=== PATIENT | female | born 1935 | race Caucasian/White ===

== ENCOUNTER 2024-02-16 10:19 | Outpatient (CLI) | payer MEDICARE, SELFPAY ==
--- NOTE | 2024-02-16 10:36 | ECG_ITS ---
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
[2024-02-16 10:59] LABS: Hematocrit 40.7 % (37.0-47.0); Hemoglobin 13.4 g/dL (12.0-15.0); Mean Corpuscular HGB Conc 32.9 g/dl (32-36); Mean Corpuscular Hemoglobin 33.2 pg (26-34); Mean Corpuscular Volume 100.7 fl (80-100); Mean Platelet Volume 9.1 fl (7.4-10.4); Platelet Count Result 209 k/mm3 (150-375); Red Blood Count 4.04 M/mm3 (4.2-5.4); Red Cell Distribution Width 12.6 % (11.5-14.5); White Blood Count 6.6 K/mm3 (4.5-10.0)
[2024-02-16 11:05] LABS: Add Urine Microscopic? YES; Appearance Urine Cloudy (Clear); Bacteria Urine 3+ /hpf; Bilirubin Urine Negative (Negative); Blood Urine Negative (Negative); Color Urine Yellow (Yellow); Glucose Urine UA Negative (Negative); Ketones Urine Negative (Negative); Leukocyte Esterase Ur Trace LEU/UL (Negative); Nitrate Urine Positive (Negative); Protein Urine Negative (Negative); RBC Urine 0-2 /hpf (0-2); Specific Grav Ur 1.022 (1.001-1.035); Squamous Epithelial Cell Urine Few /hpf (Few); Urobilinogen Urine 0.2 mg/dL (<2.0)
[2024-02-16 11:10] LABS: Anion Gap 5 mmol/L (4-12); Blood Urea Nitrogen 27 mg/dL (7-17); Calcium 9.1 mg/dL (8.4-10.2); Carbon Dioxide 26 mmol/L (22-30); Chloride 107 mmol/L (98-107); Estimated Glomerular Filt Rate 39; Glucose 99 mg/dL (65-110); Potassium 4.5 mmol/L (3.4-5.0); Sodium 138 mmol/L (137-145)
[2024-02-16 11:32] LABS: Partial Thromboplastin Time 28.2 Seconds (22.3-36.8); Prothrombin Time 13.8 Seconds (11.1-14.7)
== END 2024-02-16 10:20 | disposition home or self-care (01) ==
PROVIDERS: PCP Physician Assistant; Visit Provider Neurological Surgery
DX: M43.16 Spondylolisthesis, lumbar region (principal); M48.062 Spinal stenosis, lumbar region with neurogenic claudication; Z01.818 Encounter for other preprocedural examination; R94.31 Abnormal electrocardiogram [ECG] [EKG]
CPT/HCPCS: 36415; 80048; 81001; 85027; 85610; 85730; 87077; 87086; 87186; 93005

== ENCOUNTER 2024-05-02 08:54 | Outpatient (CLI) | payer MEDICARE, SELFPAY ==
--- OUTSIDE RECORDS SUMMARY | 2024-05-02 09:19 | XMS_ITS | Referral Summary ---
Author Organization 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 Name Role Phone Carmela Edwards SENIOR ADMINISTRATIVE ASSISTANT Unavailable Unavailable Ulices Castañeda MD, Terrance Nikunj Primary [facility] Provi devon Allergies Active Allergy Reactions Criticality Noted Date Comments Oxycodone-Acetaminop hen Other (See comments) Low 10/29/2017 felt like there was a balloon in my chest Sulfa (Sulfonamide Antibiotics) Nausea only Reaction: Nausea, Sulfamethoxazole-Tri methoprim Diarrhea,Nausea Only,Vomiting Low Medications ezetimibe (ZETIA) 10 mg tablet take 1 tablet by oral route every day 0 0 05/11/19 14 Active Additional Information Patient taking differently:10 mgoral Daily, Reported on 01/14/2024 olmesartan (BENICAR) 20 mg tablet TAKE ONE TABLET BY MOUTH DAILY 07/11/19 18 Active cholecalciferol (VITAMIN D-3) 1,000 unit tablet Take 1,000 Units by mouth daily. Active cyanocobalamin (Vitamin B-12) 1,000 mcg tablet Take 1,000 mcg by mouth daily. Active ascorbic acid (VITAMIN C) 500 mg tablet,chewableInd ications:Vitamin deficiency prevention Take 1 tablet/chew tab (500 mg total) by mouth 2 (two) times a day. 60 tablet/chew tab 09/16/19 18 Active aspirin 325 mg EC tabletIndications: Deep Vein Thrombosis Prevention Take 1 tablet (325 mg total) by mouth 2 (two) times a day. 56 tablet 09/16/19 18 Active ferrous sulfate 325 mg (65 mg of elemental iron) tabletIndications: Iron Deficiency Anemia,Anemia prevention Take 1 tablet (325 mg total) by mouth daily with breakfast. 30 tablet 09/16/19 18 Active ondansetron ODT (ZOFRAN-ODT) 4 mg disintegrating tabletIndications: Prevention of Post-Operative Nausea and Vomiting,nausea and vomiting Take 1 tablet (4 mg total) by mouth every 6 (six) hours as needed for nausea or vomiting. 20 tablet 09/16/19 18 Active polyethylene glycol (MIRALAX) 17 gram packetIndications: constipation Take 1 packet (17 g total) by mouth daily. 1 packet 09/16/19 18 Active senna-docusate (PERICOLACE) 8.6-50 mgIndications:cons tipation Take 1 tablet by mouth 2 (two) times a day as needed for constipation. 30 tablet 09/16/19 18 Active Additional Information Patient not taking.Reported on 06/20/2021 celecoxib (CeleBREX) 200 mg capsuleIndications :Postoperative Acute Pain,Pain Take 1 capsule (200 mg total) by mouth 2 (two) times a day. 28 capsule 09/16/19 18 Active diclofenac sodium (VOLTAREN) 1 % gel Apply topically 4 (four) times a day as needed (pain). Apply 2 grams topically to right knee or ankle prn for pain/arthritic symptoms 100 g 2 10/29/19 18 Active azithromycin (ZITHROMAX) 250 mg tablet 2 tab(s) daily for 1 day, then 1 tab(s) daily for days 2-5. 08/20/19 19 Active candesartan (ATACAND) 16 mg tablet TAKE 1 TABLET BY MOUTH EVERY DAY 08/14/19 19 Active carisoprodol (SOMA) 350 mg tablet Take 350 mg by mouth 3 (three) times a day 0 06/24/19 19 Active irbesartan (AVAPRO) 150 mg tablet Take 1 tablet (150 mg total) by mouth daily 07/28/19 19 Active TiZANidine (ZANAFLEX) 2 mg capsule TAKE 1 CAP BY MOUTH 3 TIMES DAILY FOR 14 DAYS. 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 Resolved Problems Problem Noted Date Diagnosed Date Resolved Date Primary osteoarthritis of right knee 08/21/2017 09/15/2017 Overview (08/21/2017): Added automatically from request for surgery [id number] Social History Tobacco Use Types Packs/Day Years Used Date Smoking Tobacco: Never Smokeless Tobacco: Never Alcohol Use Standard Drinks/Week Comments No 0 (1 standard drink = 0.6 oz pur e alcohol) PHQ-2 Answer Date Recorded PHQ-2 Total Score (If total score is 3 or more points, staff should administer the PHQ-9) 0 01/14/2024 Comments Unknown Sex and Gender Information Value Date Recorded Sex Assigned at Not on file 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 Gender Identity Not on file Sexual Orientation Not on file Last Filed Vital Signs Vital Sign Reading Time Taken Comments Blood Pressure 138/82 01/14/2024 10:06 AM CDT Pulse 79 01/14/2024 10:06 AM CDT Temperature 36.3 C (97.3 F) 09/25/2017 1:48 PM CDT Respiratory Rate 18 01/14/2024 10:06 AM CDT Oxygen Saturation 99% 01/14/2024 10:06 AM CDT Inhaled Oxygen Concentration - - Weight 104 kg (229 lb 3.2 oz) 09/14/2018 8:38 AM CDT Height 175.3 cm (5' 9 ) 09/14/2018 8:38 AM CDT Body Mass Index 33.85 09/14/2018 8:38 AM CDT Plan of Treatment Not on file Medical Devices Implanted Type Area Cat Scan Tech Device Identifier Shelf Expiration Date Model / Serial / Lot Cmpnt Truliant Ps Cement Fem Right 4 - [id number] - [id number] Implanted:Qty: 1 on 09/14/2017 by Brandon Mistry MD at [facility] Right: Knee [employer] 07/15/2027 [id number] 40 / [id number] / Optetrak 3 Peg Advanced Patella Cemented, Thickness 8.2mm 32mm X 37mm Implanted:Qty: 1 on 09/14/2017 by Brandon Mistry MD at [facility] Right: Knee [employer] [id number] 05/07/2022 / [id number] / Insert Tibial 4 9mm Knee Truliant Strl - [id number] - [id number] Implanted:Qty: 1 on 09/14/2017 by Brandon Mistry MD at [facility] Right: Knee [employer] 07/07/202508-802-40-40 09 / [id number] / Tray Tibial Truliant 4f/4t Knee Strl Ltxfre - [id number] - [id number] Implanted:Qty: 1 on 09/14/2017 by Brandon Mistry MD at [facility] Right: Knee [employer] 05/19/202720-147-79-40 40 / [id number] / [employer] [id number] Smartset High Viscosity Cement 40gm Bone Gentamicin - [id number] Implanted:Qty: 1 on 09/14/2017 by Brandon Mistry MD at [facility] Right: Knee [employer] 12/20/2018 [id number] / / [id number] [employer] [id number] Smartset High Viscosity Cement 40gm Bone Gentamicin - [id number] Implanted:Qty: 1 on 09/14/2017 by Brandon Mistry MD at [facility] Right: Knee [employer] 11/20/2018 [id number] / / [id number] Insurance MEDICARE [facility] MEDICARE [facility] MEDICARE [facility] MEDICARE [facility] Advance Directives For more information, please contact: [phone] * Full Code (Latest Code Status on File) Date Activated Date Inactivated Comments 09/14/2017 6:23 PM 09/15/2017 7:23 PM Care Teams Stock Parts Fabricator Relationship Specialty Start Date End Date Terrance Elena Jr., MD [address] [place] [address] PCP - General 09/14/17 Carmela Edwards, SENIOR ADMINISTRATIVE ASSISTANT Steel Pourer Helper Physical Therapy 09/04/17
--- OUTSIDE RECORDS SUMMARY | 2024-05-02 09:20 | XMS_ITS | Clinical Summary ---
Author Organization [facility] Address [address] [facility] [address] [place] [address] Phone Care Team Providers Care Property Assessment Monitor Name Role Phone Carmela Barney Primary Care Provider + Allergies Active Allergy Reactions Criticality Noted Date Comments Oxycodone-Acetaminop hen Other (see Comments) 10/29/2017 felt like there was a balloon in my chest Sulfamethoxazole-Tri methoprim Diarrhea,Nausea,Vomiti ng Medications Multiple Vitamins-Mineral s (MULTIVITAL PO) Take by mouth. Active ezetimibe (ZETIA) 10 MG Tablet TAKE 1 TABLET DAILY 90 Tablet 3 07/10/19 24 Active celecoxib (CeleBREX) 200 MG Capsule TAKE 1 CAPSULE DAILY 90 Capsule 3 07/10/19 24 Active irbesartan (AVAPRO) 150 MG Tablet TAKE 1 TABLET BY MOUTH EVERY DAY 90 Tablet 3 09/18/19 24 Active hydroCHLOROthiaz vannessa 25 MG TabletIndication s:Essential hypertension TAKE 1 TABLET BY MOUTH EVERY DAY 90 Tablet 1 04/05/19 25 Active traMADol (ULTRAM) 50 MG TabletIndication s:Central stenosis of spinal canal Take 1 Tablet by mouth every 6 hours as needed for Moderate or more severe pain. 90 Tablet 04/05/19 25 Active hydroCHLOROthiaz vannessa 25 MG TabletIndication s:Essential hypertension Take 1 Tablet by mouth daily. 90 Tablet 1 10/21/19 24 025 Discontinued HYDROcodone-acet aminophen (NORCO) 5-325 MG TabletIndication s:Central stenosis of spinal canal Take 1 Tablet by mouth every 4 hours as needed for Severe pain. 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 Encounters Date Type Department Care Team Description 04/29/2024 [facility] [address] [place] [address] Carmela Barney PAC Labs Only 04/26/2024 Results Follow-Up [facility] [address] [place] [address] Carmela Barney, REBEL 04/20/2024 Telephone [facility] [address] [place] [address] Carmela Barney, PAC 04/18/2024 3:00 PM SERVICES EXECUTIVE Lab [facility] [address] [address] [facility]/Ancillary Essential hypertension; Elevated MCV; Hyperlipidemia, unspecified hyperlipidemia type Discharge Disposition: Discharged to home or Selfcare 04/18/2024 2:15 PM SERVICES EXECUTIVE Office Visit [facility] [address] [place] [address] Carmela Barney, REBEL Essential hypertension (Primary Dx); Spinal stenosis of lumbar region with neurogenic claudication Discharge Disposition: Discharged to home or Selfcare 04/18/2024 Travel 04/05/2024 [facility] [address] [place] [address] Carmela Barney PAC Medication Management 04/05/2024 Refill [facility] [address] [place] [address] Carmela Barney, PAC Medication Refill 03/17/2024 3:00 PM SERVICES EXECUTIVE Office Visit [facility] [address] [place] [phone] Teresa Marsh APRN, DRAMATIC COACH Pre-op evaluation (Primary Dx); Primary hypertension; Dyslipidemia; RBBB Discharge Disposition: Discharged to home or Selfcare 03/17/2024 Travel 03/04/2024 [facility] [place] [phone] Carmela Barney, PAC Medication Refill 03/04/2024 [facility] [address] [place] [phone] Carmela Barney, PAC Follow-up 02/17/2024 [facility] [address] [place] [phone] Carmela Barney, REBEL Medication Management; Advice Only (Abnormal EKG and urinalysis results Back surgery L3-L4 cancelled for 02/23/24) 02/08/2024 11:30 AM SERVICES EXECUTIVE Office Visit [facility] [address] [place] [phone] Carmela Barney, PAC Essential hypertension (Primary Dx); Hyperlipidemia, unspecified hyperlipidemia type; Elevated MCV Discharge Disposition: Discharged to home or Selfcare 02/08/2024 [facility] [address] [place] [phone] Carmela Barney, PAC Advice Only 02/08/2024 Travel 02/08/2024 [facility]ill [facility] [address] [place] [address] Carmela Barney, PAC Medication Refill from Last 3 Months Immunizations Immunization Administration Dates Next Due Covid-19 Vaccine, Vector-nr, Rs-ad26, Pf, 0.5 Ml (Mastodon C/J&MyNewPlace) 08/03/2020 TDAP Vaccine 06/07/2021 Family History Medical History Relation Name Comments No Known Problems Brother No Known Problems Father No Known Problems Maternal Grandfather No Known Problems Maternal Grandmother No Known Problems Mother Breast Cancer Other cousin No Known Problems Paternal Grandfather No Known Problems Paternal Grandmother No Known Problems Sister Relation Name Status Comments Brother Father Maternal Grandfather Maternal Grandmother Mother Other cousin Paternal Grandfather Paternal Grandmother Sister Social History Tobacco Use Types Packs/Day Years Used Date Smoking Tobacco: Never Smokeless Tobacco: Never Tobacco Cessation:Counseling Given: Not Answered Alcohol Use Standard Drinks/Week Comments Yes 0 (1 standard drink = 0.6 oz pur e alcohol) rare [facility] Utilities Answer Date Recorded In the past 12 months has e electric, gas, oil, or water company threatened to shut off services in your home? No 02/08/2024 Social Connection and Isolat ion Panel [NHANES] Answer Date Recorded In a typical week, how many times do you talk on the phone with family, friends, or neighbors? More than three times a week 02/08/2024 How often do you get togethe r with friends or relatives? More than three times a week 02/08/2024 How often do you attend chur ch or samaritan services? More than 4 times per year 02/08/2024 Do you belong to any clubs o r organizations such as yazidism groups, unions, fraternal or athletic groups, or school groups? No 02/08/2024 How often do you attend meet ings of the clubs or organizations you belong to? Never 02/08/2024 Are you , , di vorced, , never , or living with a partner? 02/08/2024 AUDIT-C Answer Date Recorded Q1: How often do you have a drink containing alcohol? Never 02/08/2024 Q2: How many drinks containi ng alcohol do you have on a typical day when you are drinking? Patient does not drink Q3: How often do you have si x or more drinks on one occasion? Never 02/08/2024 Overall Financial Resource Strain (CARDIA) Answe r Date Recorded How hard is it for you to pa y for the very basics like food, housing, medical care, and heating? Not very hard 02/08/2024 PHQ-2 Answer Date Recorded Total Score - Questions 1-9 0 03/24 [facility] - Occupational Stress Questionnaire Answer Date Recorded Do you feel stress - tense, restless, nervous, or anxious, or unable to sleep at night because your mind is troubled all the time - these days? Not at all 02/08/2024 Exercise Vital Sign Answer Date Recorde d On average, how many days pe r week do you engage in moderate to strenuous exercise (like a brisk walk)? 3 days 02/08/2024 On average, how many minutes do you engage in exercise at this level? 40 min 02/08/2024 Hunger Vital Sign Answer Date Recorded Within the past 12 months, y ou worried that your food would run out before you got the money to buy more. Never true 02/08/20 24 Within the past 12 months, t he food you bought just didn't last and you didn't have money to get more. Never true 02/08/2024 PRAPARE - Transportation Answer Date Re corded In the past 12 months, has l ack of transportation kept you from medical appointments or from getting medications? No 01/21 In the past 12 months, has l ack of transportation kept you from meetings, work, or from getting things needed for daily living? No 02/08/2024 Housing Stability Vital Sign Answer Jagdish e Recorded In the last 12 months, was t here a time when you were not able to pay the mortgage or rent on time? No 04/15/2023 Number of Places Lived in the Last Year Not on f ile 04/15/2023 In the last 12 months, was t here a time when you did not have a steady place to sleep or slept in a nursing home (including now)? No 04/15/2023 Housing Stability Vital Sign Answer Jagdish e Recorded In the last 12 months, was t here a time when you were not able to pay the mortgage or rent on time? No 02/08/2024 In the past 12 months, how m any times have you moved where you were living? 0 02/08/2024 At any time in the past 12 m onths, were you homeless or living in a nursing home (including now)? No 02/08/2024 Education Answer Date Recorded What is the highest level of school you have completed or the highest degree you have received? Some college, no degree 10/13/2022 Sexually Active Control Partners Comments Never Comments No Sex and Gender Information Value Date Recorded Sex Assigned at Not on file Legal Sex Female 10:33 PM CDT Gender Identity Not on file Sexual Orientation Not on file Last Filed Vital Signs Vital Sign Reading Time Taken Comments Blood Pressure 146/72 04/18/2024 2:10 PM SERVICES EXECUTIVE Pulse 91 04/18/2024 2:10 PM SERVICES EXECUTIVE Temperature 36.7 C (98 F) 04/18/2024 2:10 PM SERVICES EXECUTIVE Respiratory Rate 16 03/17/2024 2:52 PM SERVICES EXECUTIVE Oxygen Saturation 98% 04/18/2024 2:10 PM SERVICES EXECUTIVE Inhaled Oxygen Concentration - - Weight 105.7 kg (233 lb) 04/18/2024 2:10 PM SERVICES EXECUTIVE Height 175.3 cm (5' 9 ) 04/18/2024 2:10 PM SERVICES EXECUTIVE Body Mass Index 34.41 04/18/2024 2:10 PM SERVICES EXECUTIVE Plan of Treatment Upcoming Encounters Date Type Department Care Team (Late st Contact Info) Description 08/24/2024 9:00 AM CDT Office Visit [facility] [address] [place] [address] Carmela Barney, PAC [address] [place] [address] Health Maintenance Due Date Last Done Comments Pneumococcal Immunization (5 0+ years) (1 of 1 - PCV) 12/18/1985 Zoster Immunization (1 of 2) 12/18/1985 Respiratory Syncytial Virus (RSV) Immunization (Adult) (1 - 1-dose 75+ series) 12/18/2010 DEXA Bone Density 10/11/2023 10/10/2021 Influenza Immunization (#1) 2023 SARS-COV-2 Immunization (2 - season) 2023 08/03/2020 Td Immunization Every 10 Yea rs (Adults With 1 Tdap) 06/08/2031 06/07/2021 Hepatitis B Immunization Aged Out No longer eligible based on patient's age to complete this topic Hepatitis C Virus (HCV) Screening Discontinued Meningococcal Immunization (ACWY) Aged Out No longer eligible based on patient's age to complete this topic Rotavirus Immunization Aged Out No lo nger eligible based on patient's age to complete this topic Procedures Procedure Name Priority Date/Time Associated Diagnosis Comments CBC WITH AUTO DIFFERENTIAL Routine 04/18/2024 2:55 PM SERVICES EXECUTIVE Essential hypertension Elevated MCV LIPID PANEL Routine 04/18/2024 2:55 PM SERVICES EXECUTIVE Hyperlipidemia, unspecified hyperlipidemia type FOLIC ACID (FOLATE) Routine 04/18/2024 2 :55 PM SERVICES EXECUTIVE Elevated MCV VITAMIN B12 Routine 04/18/2024 2:55 PM SERVICES EXECUTIVE Elevated MCV MAGNESIUM (MG) Routine 04/18/2024 2:55 PM SERVICES EXECUTIVE Essential hypertension COMPLETE BLOOD COUNT (CBC) WITH DIFF Routine 04/18/2024 2:55 PM SERVICES EXECUTIVE Essential hypertension Elevated MCV CMP (COMPREHENSIVE METABOLIC PANEL) Routine 04/18/2024 2:55 PM SERVICES EXECUTIVE Essential hypertension EKG 12 LEAD Routine 03/17/2024 2:59 PM SERVICES EXECUTIVE Pre-op evaluation EKG SCAN 02/16/2024 12:00 AM SERVICES EXECUTIVE NORTH BONE DENSITOMETRY AXIAL SKELETON Routine 10/10/2021 9:48 AM CDT Menopause from Last 3 Months or Most Recently Relevant to Health Maintenance Results * (ABNORMAL) CBC WITH AUTO DIFFERENTIAL (04/18/2024 2:55 PM SERVICES EXECUTIVE) [facility] WBC 8.19 4.00 - 12.00 10(3)/mcL 04/18/2024 3:56 PM SERVICES EXECUTIVE [email or web address] RBC 4.24 3.80 - 5.30 10(6)/mcL 04/18/2024 3:56 PM [facility] HEMOGLOBIN (HGB) 13.9 12.0 - 15.8 g/dL 04/18/2024 3:56 PM [facility] HEMATOCRIT (HCT) 42.4 36.0 - 47.0 % 04/18/2024 3:56 PM [facility] MCV 100.0(H) 82.0 - 96.0 fL 04/18/2024 3:56 PM [facility] MCH 32.8 26.0 - 34.0 pg 04/18/2024 3:56 PM [facility] MCHC 32.8 31.0 - 36.0 g/dL 04/18/2024 3:56 PM [facility] PLATELET COUNT 247 140 - 440 10(3)/mcL 04/18/2024 3:56 PM [facility] RDW 12.9 11.8 - 15.5 % 04/18/2024 3:56 PM [facility] MPV 9.5(L) 9.7 - 12.4 fL 04/18/2024 3:56 PM [facility] NEUTROPHILS 66.0 47.0 - 73.0 % 04/18/2024 3:56 PM [facility] LYMPHOCYTES 22.6 18.0 - 42.0 % 04/18/2024 3:56 PM [facility] MONOCYTES 8.8 4.0 - 12.0 % 04/18/2024 3:56 PM [facility] EOSINOPHILS 2.1 0.0 - 5.0 % 04/18/2024 3:56 PM [facility] BASOPHILS 0.5 0.0 - 1.0 % 04/18/2024 3:56 PM [facility] ABSOLUTE NEUTROPHILS 5.41 1.60 - 7.70 10(3)/mcL 04/18/2024 3:56 PM [facility] ABSOLUTE LYMPHOCYTES 1.85 1.30 - 3.20 10(3)/mcL 04/18/2024 3:56 PM SERVICES EXECUTIVE [facility] ABSOLUTE MONOCYTES 0.72 0.20 - 1.00 10(3)/mcL 04/18/2024 3:56 PM SERVICES EXECUTIVE [facility] ABSOLUTE EOSINOPHIL 0.17 0.00 - 0.40 10(3)/mcL 04/18/2024 3:56 PM SERVICES EXECUTIVE [facility] ABSOLUTE BASOPHILS 0.04 0.00 - 0.10 10(3)/mcL 04/18/2024 3:56 PM SERVICES EXECUTIVE [facility] NRBC PER 100 WBC 0 04/18/19 3:56 PM SERVICES EXECUTIVE [facility] Blood Venipuncture / Unknown 04/18/2024 2:55 PM SERVICES EXECUTIVE 04/18/2024 2:55 PM SERVICES EXECUTIVE Carmela Barney PAC HEMATOLOGY ORDERABLES Fi nal Result [facility] [address] [place] [address] * VITAMIN B12 (04/18/2024 2:55 PM SERVICES EXECUTIVE) VITAMIN B12 664 213 - 816 pg/mL 04/18/2024 5:14 PM SERVICES EXECUTIVE [facility] Blood Venipuncture / Unknown 04/18/2024 2:55 PM SERVICES EXECUTIVE 04/18/2024 2:55 PM SERVICES EXECUTIVE Carmela Barney PAC CHEMISTRY ORDERABLES Fin al Result [facility] [address] [place] [address] * MAGNESIUM (MG) (04/18/2024 2:55 PM SERVICES EXECUTIVE) MAGNESIUM 2.0 1.6 - 2.6 mg/dL 04/18/2024 4:32 PM SERVICES EXECUTIVE [facility] Blood Venipuncture / Unknown 04/18/2024 2:55 PM SERVICES EXECUTIVE 04/18/2024 2:55 PM SERVICES EXECUTIVE us Carmela Milton Savita PAC CHEMISTRY ORDERABLES Fin al Result Performing Organization Address [facility] Co de Phone Number [facility] [address] [place] [address] * (ABNORMAL) LIPID PANEL (04/18/2024 2:55 PM SERVICES EXECUTIVE) CHOLESTEROL 173 <200 mg/dL 04/18/2024 4:32 PM SERVICES EXECUTIVE [facility] TRIGLYCERIDES 201(H) <150 mg/dL 04/18/2024 4:32 PM SERVICES EXECUTIVE [facility] HDL CHOLESTEROL 55 >40 mg/dL 4:32 PM SERVICES EXECUTIVE [facility] LDL 78 <130 mg/dL 04/18/2024 4:32 PM SERVICES EXECUTIVE [facility] VLDL 40 10 - 50 mg/dL 04/18/2024 4:32 PM SERVICES EXECUTIVE [facility] CHOL/HDL RATIO 3.1 0.0 - 4.4 04/18/2024 4:32 PM SERVICES EXECUTIVE [facility] NON-HDL CHOLESTEROL 118 <130 mg/dL 04/18/2024 4:32 PM SERVICES EXECUTIVE [facility] IS THE PATIENT REQUIRED TO BE FASTING? No 04/18/2024 4:32 PM SERVICES EXECUTIVE [facility] Blood Venipuncture / Unknown 04/18/2024 2:55 PM SERVICES EXECUTIVE 04/18/2024 2:55 PM SERVICES EXECUTIVE us WendyKarine Barney PAC CHEMISTRY ORDERABLES Fin al Result Performing Organization Address City/[facility]/ZIP Co de Phone Number [facility] [address] [place] [address] * FOLIC ACID (FOLATE) (04/18/2024 2:55 PM SERVICES EXECUTIVE) FOLATE 12.6 7.0 - 31.4 ng/mL 04/18/2024 5:14 PM SERVICES EXECUTIVE [facility] IS THE PATIENT REQUIRED TO BE FASTING? No 04/18/2024 5:14 PM SERVICES EXECUTIVE [facility] Blood Venipuncture / Unknown 04/18/2024 2:55 PM SERVICES EXECUTIVE 04/18/2024 2:55 PM SERVICES EXECUTIVE us Carmela Barney PAC CHEMISTRY ORDERABLES Fin al Result [facility] [address] [place] [address] * (ABNORMAL) CMP (COMPREHENSIVE METABOLIC PANEL) (04/18/2024 2:55 PM SERVICES EXECUTIVE) SODIUM 139 136 - 145 mmol/L 04/18/2024 4:32 PM [facility] POTASSIUM 4.6 3.5 - 5.1 mmol/L 04/18/2024 4:32 PM [facility] CHLORIDE 108(H) 98 - 107 mmol/L 04/18/2024 4:32 PM [facility] CO2, VENOUS 23 22 - 30 mmol/L 04/18/2024 4:32 PM [facility] ANION GAP 12.6 <18.0 mmol/L 04/18/2024 4:32 PM [facility] GLUCOSE 96 70 - 99 mg/dL 04/18/2024 4:32 PM [facility] BUN 28(H) 10 - 20 mg/dL 04/18/2024 4:32 PM [facility] CREATININE, BLOOD 1.45(H) 0.60 - 1.00 mg/dL 04/18/2024 4:32 PM [facility] BUN/CREATININE RATIO 19 12 - 20 ratio 04/18/2024 4:32 PM [facility] TOTAL PROTEIN 8.1(H) 6.0 - 8.0 g/dL 04/18/2024 4:32 PM [facility] ALBUMIN 4.1 3.5 - 5.0 g/dL 04/18/2024 4:32 PM [facility] A/G RATIO 1.0 1.0 - 2.2 04/18/2024 4:32 PM SERVICES EXECUTIVE [facility] CALCIUM 9.4 8.7 - 10.5 mg/dL 04/18/2024 4:32 PM [facility] T BILI 0.5 0.2 - 1.2 mg/dL 04/18/2024 4:32 PM SERVICES EXECUTIVE [facility] SGOT (AST) 21 6 - 42 U/L 04/18/2024 4:32 PM [facility] SGPT (ALT) 14 6 - 55 U/L 04/18/2024 4:32 PM [facility] ALKALINE PHOSPHATASE 89 40 - 150 U/L 04/18/2024 4:32 PM [facility] IS THE PATIENT REQUIRED TO BE FASTING? No 04/18/2024 4:32 PM SERVICES EXECUTIVE [facility] GFR, ESTIMATED 35(L) >=60 04/18/2024 4:32 PM [facility] Comment: Creatinine Clearance is the preferred criteria for selecting drug dose adjustments in renally impaired patients. The GFR is provided as additional pertinent clinical information. GFR is reported in mL/min/1.73 sq m. Calculation based on the Chronic Kidney Disease Epidemiology Collaboration (CKD- EPI) equation refit without adjustment for race. GFR, EST. 41(L) >=60 025 4:32 PM SERVICES EXECUTIVE [facility] GFR, EST. NONAFRICAN 34(L) >=60 04/18/2024 4:32 PM [facility] Blood Venipuncture / Unknown 04/18/2024 2:55 PM SERVICES EXECUTIVE 04/18/2024 2:55 PM SERVICES EXECUTIVE us Carmela Barney PAC CHEMISTRY ORDERABLES Fin al Result [facility] [place] [address] * EKG 12 LEAD (03/17/2024 2:59 PM SERVICES EXECUTIVE) Ventricular Rate 84 BPM EXTERNAL EKG Atrial Rate 84 BPM EXTERNAL EKG P-R Interval 180 ms EXTERNAL EKG QRS Duration 128 ms EXTERNAL EKG Q-T Duration 398 ms EXTERNAL EKG QTC CALCULATION 470 ms EXTERNAL EKG P [place] 37 degrees EXTERNAL EKG R [place] -38 degrees EXTERNAL EKG T [place] 20 degrees EXTERNAL EKG 03/17/2024 2:59 PM SERVICES EXECUTIVE Impressions EXTERNAL EKG - 04/17/2024 11:25 AM SERVICES EXECUTIVE Normal sinus rhythm Left axis deviation Right bundle branch block Inferior infarct , 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 infarct , age undetermined Abnormal ECG ~ Confirmed by Chucho Foss ([id number]) on 04/17/2024 11:25:36 AM Narrative Procedure Note Chucho Foss MD - 04/17/2024 IMPRESSION: Normal sinus rhythm Left axis deviation Right bundle branch block Inferior infarct , 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 infarct , age undetermined Abnormal ECG ~ Confirmed by Chucho Foss ([id number]) on 04/17/2024 11:25:36 AM Teresa Marsh APRN, DRAMATIC COACH IMG ECG ORDERABLES F inal Result EXTERNAL EKG * EKG SCAN (02/16/2024 12:00 AM SERVICES EXECUTIVE) 02/16/2024 us Provider Scan IMG ECG ORDERABLES Final Result RESULTING AGENCY * NORTH BONE DENSITOMETRY AXIAL SKELETON (10/10/2021 9:48 AM CDT) Anatomical Region Laterality Modality BODY N/A Computed Radiogr aphy 10/10/2021 12:5 9 PM CDT Impressions 10/10/2021 1:01 PM CDT IMPRESSION: Normal. 10 year risk for a major osteoporotic fracture is 8.5 %, 10 year risk for a hip fracture is 1.6 % REFERENCE: Bone mineral density: Normal (T-score above or = -1.0) Low bone mass (T-score between -1.0 and -2.5) replaces the previously used term osteopenia Osteoporosis (T-score = or below -2.5) Medical evaluation for secondary causes of low bone mineral density may be appropriate. FRAX is a World Health Organization validated fracture risk assessment tool that calculates a person's 10 year probability of a major osteoporosis related fracture and hip fracture. According to the National Osteoporosis Foundation guidelines, postmenopausal women and men age 50 or older with low bone mass and a 10 year probability of a major osteoporosis related fracture = or greater than 20% or a 10 year probability of a hip fracture = or greater than 3% should be considered for treatment. For further information, including treatment recommendations, please refer to the 2013 ISCD Official Positions (http://www.iscd.org) and the NOF's Clinician's Guide to Prevention and Treatment of Osteoporosis (http://www.nof.org/professionals/clinical-guidelines) Narrative 10/10/2021 1:01 PM CDT EXAM DESCRIPTION: NORTH BONE DENSITOMETRY AXIAL SKELETON REASON FOR STUDY: 85 y/o year old F with given history of screening. Recruiting Manager/Model: [employer] (S/N [id number]) CLINICAL INFORMATION: Current height: 69 inches Maximum height: 69 inches Weight: 233.3 pounds Risk factors: None COMPARISON: 10/02/2010 FINDINGS: AP LUMBAR SPINE L1-L4: Total BMD is 1.778 g/cm2 T-score is 4.7 LEFT HIP: Total BMD is 0.947 g/cm2 T-score is -0.5 Femoral neck BMD is 0.990 g/cm2 T-score is -0.3 FRAX: 10 year risk for a major osteoporotic fracture is 8.5 %, 10 year risk for a hip fracture is 1.6 % THIS IS AN ELECTRONICALLY VERIFIED FINAL REPORT 10/10/2021 12:59 PM - Electronically signed by Ryne Evans M.D. AG: [employer] Report ID: [id number] Reading Location: [id number] Procedure Note Ryne Evans MD - 10/10/2021 EXAM DESCRIPTION: NORTH BONE DENSITOMETRY AXIAL SKELETON REASON FOR STUDY: 85 y/o year old F with given history of screening. Recruiting Manager/Model: [employer] (S/N [id number]) CLINICAL INFORMATION: Current height: 69 inches Maximum height: 69 inches Weight: 233.3 pounds Risk factors: None COMPARISON: 10/02/2010 FINDINGS: AP LUMBAR SPINE L1-L4: Total BMD is 1.778 g/cm2 T-score is 4.7 LEFT HIP: Total BMD is 0.947 g/cm2 T-score is -0.5 Femoral neck BMD is 0.990 g/cm2 T-score is -0.3 FRAX: 10 year risk for a major osteoporotic fracture is 8.5 %, 10 year risk for a hip fracture is 1.6 % THIS IS AN ELECTRONICALLY VERIFIED FINAL REPORT 10/10/2021 12:59 PM - Electronically signed by Ryne Evans M.D. AG: [employer] Report ID: [id number] Reading Location: [id number] IMPRESSION: Normal. 10 year risk for a major osteoporotic fracture is 8.5 %, 10 year risk for a hip fracture is 1.6 % REFERENCE: Bone mineral density: Normal (T-score above or = -1.0) Low bone mass (T-score between -1.0 and -2.5) replaces the previously used term osteopenia Osteoporosis (T-score = or below -2.5) Medical evaluation for secondary causes of low bone mineral density may be appropriate. FRAX is a World Health Organization validated fracture risk assessment tool that calculates a person's 10 year probability of a major osteoporosis related fracture and hip fracture. According to the National Osteoporosis Foundation guidelines, postmenopausal women and men age 50 or older with low bone mass and a 10 year probability of a major osteoporosis related fracture = or greater than 20% or a 10 year probability of a hip fracture = or greater than 3% should be considered for treatment. For further information, including treatment recommendations, please refer to the 2013 ISCD Official Positions (http://www.iscd.org) and the NOF's Clinician's Guide to Prevention and Treatment of Osteoporosis (http://www.nof.org/professionals/clinical-guidelines) Chantale Dewitt MD IMG DEXA ORDERABLES Final R esult from Last 3 Months or Most Recently Relevant to Health Maintenance Insurance [facility] MEDICARE Care Teams Property Assessment Monitor Relationship Specialty Start Date End Date Carmela Barney PAC [address] [place] [address] PCP - General Physician Technical Marketing Consultant 04/15/23
--- OUTSIDE RECORDS SUMMARY | 2024-05-02 09:20 | XMS_ITS | Encounter Summary ---
Author Organization [facility] Address [address] [facility] [place] [address] Phone Care Team Providers Care Penciller Name Role Phone Chantale Dewitt MD Primary Care Provider [phone] Carmela Barney Primary Care Provider + Reason for Visit * Reason Comments Medication Refill Encounter Details Date Type Department Care Team (Late st Contact Info) Description 03/24/2023 Refill [facility] [address] [place] [address] Chantale Dewitt MD [address] [place] [address] Medication Refill Social History Tobacco Use Types Packs/Day Years Used Date Smoking Tobacco: Never Smokeless Tobacco: Never Alcohol Use Standard Drinks/Week Comments Yes 0 (1 standard drink = 0.6 oz pur e alcohol) rare PHQ-2 Answer Date Recorded Total Score - Questions 1-9 0 03/23 Education Answer Date Recorded What is the highest level of school you have completed or the highest degree you have received? Some college, no degree 10/13/2022 Sexually Active Control Partners Comments Never Comments No Sex and Gender Information Value Date Recorded Sex Assigned at Not on file Legal Sex Female 10:33 PM CDT Gender Identity Not on file Sexual Orientation Not on file documented as of this encounter Miscellaneous Notes * Telephone Encounter - Megan Ahn RN - 03/24/2023 3:03 PM CST PDMP 12/24/22 Medication failed the protocol, provider to review and approve the medication order if appropriate. Requested Prescriptions Pending Prescriptions Disp Refills traMADol (ULTRAM) 50 MG Tablet [Pharmacy Med Name: TRAMADOL HCL 50 MG TABLET] 90 Tablet 0 Sig: TAKE 1 TABLET BY MOUTH EVERY 8 HOURS NEEDED FOR PAIN Not Delegated - Opioid Agonists Protocol Failed - 03/24/2023 11:04 AM Failed - This refill cannot be delegated Passed - Visit with relevant provider in past 12 months or upcoming 90 days Recent Visits Date Type Provider Dept 10/13/22 Office Visit Chantale Dewitt MD [facility] 07/08/22 Office Visit Chantale Dewitt MD [facility] Showing recent visits within past 365 days and meeting all other requirements Future Appointments Date Type Provider Dept 04/15/23 Appointment Carmela Barney PAC [facility] Showing future appointments within next 90 days and meeting all other requirements MACY TECHNICIAN documented in this encounter Plan of Treatment Upcoming Encounters Date Type Department Care Team (Late st Contact Info) Description 08/24/2024 9:00 AM CDT [facility] Visit [facility] [address] [place] [address] Carmela Barney, REB[address] [place] [address] documented as of this encounter Visit Diagnoses Diagnosis Chronic left-sided low back pain without sciatica documented in this encounter Additional Health Concerns Assessment Noted Time PHQ-9 Depression Total Score: 0 04/06/19 21 7:00 AM PHARMACY TECHNICIAN documented as of this encounter Care Teams Penciller Relationship Specialty Start Date End Date Chantale Dewitt MD [address] [place] [address] PCP - General Family Medicine 04/03/16 04/14/23 Carmela Barney, [facility] [address] [place] [address] PCP - General Physician Welder/Fitter 04/15/23 documented as of this encounter
--- OUTSIDE RECORDS SUMMARY | 2024-05-02 09:20 | XMS_ITS | Encounter Summary ---
Author Organization [facility] Address [address] [place] [address] Phone Care Team Providers Care Isotope Technologist Name Role Phone Chantale Dewitt MD Primary Care Provider [phone] Carmela Barney Primary Care Provider + Reason for Visit * Reason Comments Medication Refill Encounter Details Date Type Department Care Team (Late Contact Info) Description 01/21/2021 [facility] [address] [place], [place] [id number] Chantale Dewitt MD [address] [place] [address] Medication Refill Social History Tobacco Use Types Packs/Day Years Used Date Smoking Tobacco: Never Smokeless Tobacco: Never Alcohol Use Standard Drinks/Week Comments Yes 0 (1 standard drink = 0.6 oz pur e alcohol) rare PHQ-2 Answer Date Recorded Total Score - Questions 1-9 0 03/23 Sexually Active Control Partners Comments Never Comments No Sex and Gender Information Value Date Recorded Sex Assigned at Not on file Legal Sex Female 10:33 PM CDT Gender Identity Not on file Sexual Orientation Not on file documented as of this encounter Plan of Treatment Upcoming Encounters Date Type Department Care Team ([facility] Contact Info) Description 08/24/2024 9:00 AM CDT Office Visit [facility] - Family [facility] [address] [place] [address] Carmela Barney PAC [address] [place] [address] documented as of this encounter Visit Diagnoses Not on filedocumented in this encounter Additional Health Concerns Assessment Noted Time PHQ-9 Depression Total Score: 0 04/06/19 21 7:00 AM CHEMISTRY SPECIALIST documented as of this encounter Care Teams Isotope Technologist Relationship Specialty Start Date End Date Chantale Dewitt MD [address] [place] [address] PCP - General Family Medicine 04/03/16 04/14/23 Carmela Barney PAC [address] [place] [address] PCP - General Physician Athletic Agent 04/15/23 documented as of this encounter
--- OUTSIDE RECORDS SUMMARY | 2024-05-02 09:20 | XMS_ITS | Encounter Summary ---
Author Organization [facility] Address [address] [facility] [place] [address] Phone Care Team Providers Care Manager Lab Name Role Phone Chantale Dewitt MD Primary Care Provider [phone] Carmela Barney Primary Care Provider + Reason for Visit * Reason Comments Medication Refill Encounter Details Date Type Department Care Team (Late st Contact Info) Description 07/07/2022 Refill [facility] - Family Medicine [facility] [address] [place] [address] Chantale Dewitt MD [address] [place] [address] Medication Refill Social History Tobacco Use Types [...] on file Sexual Orientation Not on file COVID-19 Exposure Response Date Recorded In the last 10 days, have yo u been in contact with someone who was confirmed or suspected to have Coronavirus/COVID-19? No / Unsure 07/08/2022 7:57 AM CDT documented as of this encounter Functional Status * Question Answer Date of Assessment Author Little interest or pleasure in doing things Not at all 07/08/2022 8:00 AM CDT Ana Rosa Cano MA Feeling down, depressed, or hopeless Not at all 07/08/2022 8:00 AM CDT Ana Rosa Cano MA * Over the past 2 weeks, how often have you been bothered by any of the following problems? Question Answer Date of Assessment Author Patient Health Questionnaire-2 Score 0 06/21 8:00 AM CDT Ana Rosa Cano MA documented as of this encounter Miscellaneous Notes * Telephone Encounter - Andie James RN - 07/07/2022 11:16 AM CDT Medication failed the protocol, provider to review and approve the medication order if appropriate. Requested Prescriptions Pending Prescriptions Disp Refills traMADol (ULTRAM) 50 MG Tablet [Pharmacy Med Name: TRAMADOL HCL 50 MG TABLET] 90 Tablet 0 Sig: TAKE 1 TABLET BY MOUTH EVERY 8 HOURS NEEDED FOR PAIN Not Delegated - Opioid Agonists Protocol Failed - 07/07/2022 9:27 AM Failed - This refill cannot be delegated Passed - Visit with relevant provider in past 12 months or upcoming 90 days Recent Visits Date Type Provider Dept 10/07/21 Office Visit Chantale Dewitt MD [facility] Showing recent visits within past 365 days and meeting all other requirements Future Appointments Date Type Provider Dept 07/08/22 Appointment Chantale Dewitt MD [facility] Showing future appointments within next 90 days and meeting all other requirements documented in this encounter Plan of Treatment Upcoming Encounters Date Type Department Care Team (Late st Contact Info) Description 08/24/2024 9:00 AM CDT [facility] - [facility] [address] [place] [address] Carmela Barney, REBEL [address] [place] [address] documented as of this encounter Visit Diagnoses Diagnosis Chronic left-sided low back pain without sciatica documented in this encounter Additional Health Concerns Assessment Noted Time PHQ-9 Depression Total Score: 0 04/06/19 21 7:00 AM SEMICONDUCTOR ENGINEER documented as of this encounter Care Teams Manager Lab Relationship Specialty Start Date End Date Chantale Dewitt MD [address] [place] [address] PCP - General Family Medicine 04/03/16 04/14/23 Carmela Barney PAC [address] [place] [address] PCP - General Physician Web Site Admin 04/15/23 documented as of this encounter
--- OUTSIDE RECORDS SUMMARY | 2024-05-02 09:20 | XMS_ITS | Encounter Summary ---
Author Organization [facility] Address [address] [facility] [place] [address] Phone Care Team Providers Care Railroad Engineer Name Role Phone Chantale Dewitt MD Primary Care Provider [phone] Carmela Barney Primary Care Provider + Reason for Visit * Reason Comments Medication Refill Encounter Details Date Type Department Care Team (Late st Contact Info) Description 09/19/2022 Refill [facility] - Family Medicine [facility] [address] [place] [address] Chantale Dewitt MD [address] [place] [address] Medication Refill Social History Tobacco Use Types [...] encounter Miscellaneous Notes * Telephone Encounter - Thelma Petty RN - 09/19/2022 11:40 AM CDT PDMP 07/07/22 30 day supply Medication failed the protocol, provider to review and approve the medication order if appropriate. Requested Prescriptions Pending Prescriptions Disp Refills traMADol (ULTRAM) 50 MG Tablet [Pharmacy Med Name: TRAMADOL HCL 50 MG TABLET] 90 Tablet 0 Sig: TAKE 1 TABLET BY MOUTH EVERY 8 HOURS NEEDED FOR PAIN Not Delegated - Opioid Agonists Protocol Failed - 09/19/2022 10:45 AM Failed - This refill cannot be delegated Passed - Visit with relevant provider in past 12 months or upcoming 90 days Recent Visits Date Type Provider Dept 07/08/22 Office Visit Chantale Dewitt MD [facility] 10/07/21 Office Visit Chantale Dewitt MD [facility] Showing recent visits within past 365 days and meeting all other requirements Future Appointments Date Type Provider Dept 10/13/22 Appointment Chantale Dewitt MD [facility] Showing future appointments within next 90 days and meeting all other requirements documented in this encounter Plan of Treatment Upcoming Encounters Date Type Department Care Team (Late st Contact Info) Description 08/24/2024 9:00 AM CDT Office Visit [facility] - [place] [address] [place] [address] Carmela Barney PAC [address] [place] [address] documented as of this encounter Visit Diagnoses Diagnosis Chronic left-sided low back pain without sciatica documented in this encounter Additional Health Concerns Assessment Noted Time PHQ-9 Depression Total Score: 0 04/06/19 21 7:00 AM LIGHT ARMORED RECONNAISSANCE OFFICER documented as of this encounter Care Teams Railroad Engineer Relationship Specialty Start Date End Date Chantale Dewitt MD [address] [place] [address] PCP - General Family Medicine 04/03/16 04/14/23 Carmela Barney PAC [address] [facility] [place] [address] PCP - General Physician Box Blank Machine Feeder 04/15/23 documented as of this encounter
--- OUTSIDE RECORDS SUMMARY | 2024-05-02 09:20 | XMS_ITS | Clinical Summary ---
Author Organization [facility] Address [address] [place] [address] Care Team Providers Care Manager Chinese Name Role Phone Carmela Edwards EXTRACTOR OPERATOR SOLVENT PROCESS Unavailable Unavailable Ulices Castañeda MD, Terrance Nikunj [...] (08/21/2017): Added automatically from request for surgery [id number] Surgical History Surgery Date Site/Laterality Comments KNEE ARTHROPLASTY Knee replacement JOINT REPLACEMENT 2006 Medical History Medical History Date Comments Hx Other Medical back pain Gout Gout Hypertension Hypertension Hyperlipidemia Family History Medical History Relation Name Comments Heart disease Other 1 Family history of Heart disease; Hypertension Other 2 Family history of Hypertension; Relation Name Status Comments Other 1 Other 2 Social History Tobacco Use Types Packs/Day Years [...] on file Legal Sex Female 4:51 PM VOLUNTEER ASSISTANT Gender Identity Not on file Sexual Orientation Not on file Obstetrics History Last Filed Vital Signs Vital Sign Reading [...] 09/14/2018 8:38 AM CDT Plan of Treatment Health Maintenance Due Date Last Done Comments Fall Risk Assessment 1935 Hepatitis B Screening 12/18/1953 Zoster Vaccine (1 of 2) 12/18/1985 Pneumococcal vaccine 65+ (1 of 1 - PCV) 12/18/2000 Well Visit 65+ 12/18/2000 Covid-19 Vaccine (2 - season) 2023 Influenza Vaccine (#1) 2023 Depression Screening 01/13/2025 01/14/2024, 01/14/20 DTaP/Tdap/Td Vaccine (2 - Td or Tdap) 06/08/2031 Medical Devices Implanted Type Area Lacquer Machine Feeder Device Identifier Shelf Expiration Date Model / Serial / Lot Cmpnt Truliant Ps Cement Fem Right Sz 4 - [id number] - [id number] Implanted:Qty: 1 on 09/14/2017 by Brandon Mistry MD at [facility] Right: Knee Exactech 07/15/202785-760-16-03 40 / [id number] / 200-07-32 Optetrak 3 Peg Advanced Patella Cemented, Thickness 8.2mm 32mm X 37mm Implanted:Qty: 1 on 09/14/2017 by Brandon Mistry MD at [facility] Right: Knee [employer] [id number] 05/07/2022 200-07-32 / [id number] / Insert Tibial 4 9mm Knee Truliant Strl - [id number] - [id number] Implanted:Qty: 1 on 09/14/2017 by Brandon Mistry MD at [facility] Right: Knee [employer] 07/07/202500-497-53-40 09 / [id number] / Tray Tibial Truliant 4f/4t Knee Strl Ltxfre - [id number] - [id number] Implanted:Qty: 1 on 09/14/2017 by Brandon Mistry MD at [facility] Right: Knee [employer] 05/19/202793-541-69-40 40 / [id number] / [employer] [id number] Smartset High Viscosity Cement 40gm Bone Gentamicin - [id number] Implanted:Qty: 1 on 09/14/2017 by Brandon Mistry MD at [facility] Right: Knee [employer] 12/20/2018 [id number] / / [id number] [employer] [id number] Smartset High Viscosity Cement 40gm Bone Gentamicin - [id number] Implanted:Qty: 1 on 09/14/2017 by Brandon Mistry MD at [facility] Right: Knee [employer] 11/20/2018 [id number] / / [id number] Insurance MEDICARE [facility] MEDICARE [facility] MEDICARE [facility] MEDICARE [facility] Advance Directives For more information, please contact: [phone] * Full Code (Latest Code Status on File) Date Activated Date Inactivated Comments 09/14/2017 6:23 PM 09/15/2017 7:23 PM Care Teams Manager Chinese Relationship Specialty Start Date End Date Terrance Elena Jr., MD [address] [place] [address] PCP - General 09/14/17 Carmela Edwards, EXTRACTOR OPERATOR SOLVENT PROCESS Tumbling Machine Operator Physical Therapy 09/04/17
--- OUTSIDE RECORDS SUMMARY | 2024-05-02 09:20 | XMS_ITS | Encounter Summary ---
Author Organization [facility] Address [address] [place] [address] Phone Care Team Providers Care Batter Out Name Role Phone Carmela Barney Primary Care Provider + Reason for Visit * Reason Comments Medication Refill Encounter Details Date Type Department Care Team (Late st Contact Info) Description 07/10/2023 Refill [facility] [address] [place] [address] Cierra Pearson APRN, TOOL CRIB CLERK [address] [address] Medication Refill Social History Tobacco Use Types Packs/Day Years Used Date Smoking Tobacco: Never Smokeless Tobacco: Never Alcohol Use Standard Drinks/Week Comments Yes 0 (1 standard drink = 0.6 oz pur e alcohol) rare [facility] Utilities Answer Date Recorded In the past 12 months has th e electric, gas, oil, or water company threatened to shut off services in your home? No 04/15/2023 Social Connection and Isolation Panel [NHANES] A nswer Date Recorded Frequency of Communication with Friends and Fami ly Not on file 04/15/2023 How often do you get togethe r with friends or relatives? Three times a week 04/15/2023 Attends [employer] Not on file 04/15 Active Member of Clubs or Organizations Not on f ile 04/15/2023 Attends Club or Organization Meetings Not on tapan e 04/15/2023 Marital Status Not on file 04/15/2023 AUDIT-C Answer Date Recorded Q1: How often do you have a drink containing alcohol? Never 04/15/2023 Q2: How many drinks containi ng alcohol do you have on a typical day when you are drinking? Patient does not drink Q3: How often do you have si x or more drinks on one occasion? Never 04/15/2023 Overall Financial Resource Strain (CARDIA) Answe r Date Recorded How hard is it for you to pa y for the very basics like food, housing, medical care, and heating? Not hard at all 04/15/2023 PHQ-2 Answer Date Recorded Total Score - Questions 1-9 0 03/23 [facility] - Occupational Stress Questionnaire Answer Date Recorded Do you feel stress - tense, restless, nervous, or anxious, or unable to sleep at night because your mind is troubled all the time - these days? Not at all 04/15/2023 Exercise Vital Sign Answer Date Recorde d On average, how many days pe r week do you engage in moderate to strenuous exercise (like a brisk walk)? 2 days 04/15/2023 On average, how many minutes do you engage in exercise at this level? 20 min 04/15/2023 Hunger Vital Sign Answer Date Recorded Within the past 12 months, y ou worried that your food would run out before you got the money to buy more. Never true 04/15/19 Ran Out of Food in the Last Year Not on file 04/15/2023 PRAPARE - Transportation Answer Date Re corded In the past 12 months, has l ack of transportation kept you from medical appointments or from getting medications? No 03/24 In the past 12 months, has l ack of transportation kept you from meetings, work, or from getting things needed for daily living? No 04/15/2023 Housing Stability Vital Sign Answer [...] place to sleep or slept in a fpc (including now)? No 04/15/2023 Education Answer Date Recorded What is the [...] Telephone Encounter - Megan Ahn RN - 07/10/2023 11:59 AM CDT Medication failed the protocol, provider to review and approve the medication order if appropriate. Requested Prescriptions Pending Prescriptions Disp Refills ezetimibe (ZETIA) 10 MG Tablet [Pharmacy Med Name: EZETIMIBE TABS 10MG] 90 Tablet 3 Sig: TAKE 1 TABLET DAILY Intestinal Cholesterol Absorption Inhibitors Protocol Passed - 07/10/2023 12:00 AM Passed - Visit with relevant provider in past year or upcoming 90 days Recent Visits Date Type Provider Dept 04/15/23 Office Visit Carmela aBrney PAC [facility] 10/13/22 Office Visit Chantale Dewitt MD [facility] Showing recent visits within past 365 days and meeting all other requirements Future Appointments Date Type Provider Dept 08/04/23 Appointment Carmela Barney PAC [facility] Showing future appointments within next 90 days and meeting all other requirements Passed - Lipid panel in past year LDL Date Value Ref Range Status 04/08/2023 99 <130 mg/dL Final HDL CHOLESTEROL Date Value Ref Range Status 04/08/2023 57 >40 mg/dL Final CHOLESTEROL Date Value Ref Range Status 04/08/2023 188 <200 mg/dL Final TRIGLYCERIDES Date Value Ref Range Status 04/08/2023 159 (H) <150 mg/dL Final VLDL Date Value Ref Range Status 04/08/2023 32 10 - 50 mg/dL Final CHOL/HDL RATIO Date Value Ref Range Status 04/08/2023 3.3 0.0 - 4.4 Final NON-HDL CHOLESTEROL Date Value Ref Range Status 04/08/2023 131 (H) <130 mg/dL Final celecoxib (CeleBREX) 200 MG Capsule [Pharmacy Med Name: CELECOXIB CAPS 200MG] 90 Capsule 3 Sig: TAKE 1 CAPSULE DAILY NSAIDs Protocol Failed - 07/10/2023 12:00 AM Failed - Normal serum creatinine in past 12 months CREATININE, BLOOD Date Value Ref Range Status 04/08/2023 1.03 (H) 0.60 - 1.00 mg/dL Final Failed - Not delegated, patient not between 1 and 65 years of age Passed - Visit with relevant provider in past 12 months or upcoming 90 days Recent Visits Date Type Provider Dept 04/15/23 Office Visit Carmela Barney PAC [facility] 10/13/22 [facility] Show[facility] recent visits within past 365 days and meeting all other requirements Future Appointments Date Type Provider Dept 08/04/23 Appointment Carmela Barney PAC [facility] Showing future appointments within next 90 days and meeting all other requirements Passed - No matching NSAID med order in past 45 days No matching medication orders between 05/26/2023 11:59 AM and 07/10/2023 11:59 AM Passed - AST less than 55 or ALT less than 90 in past 12 months SGOT (AST) Date Value Ref Range Status 04/08/2023 17 5 - 34 U/L Final SGPT (ALT) Date Value Ref Range Status 04/08/2023 14 0 - 55 U/L Final Passed - HGB greater than 10 or HCT greater than 30 in past 12 months HEMOGLOBIN (HGB) Date Value Ref Range Status 04/08/2023 14.9 12.0 - 15.8 g/dL Final HEMATOCRIT (HCT) Date Value Ref Range Status 04/08/2023 46.1 36.0 - 47.0 % Final documented in this encounter Plan of Treatment Upcoming Encounters Date Type Department Care Team (Late st Contact Info) Description 08/24/2024 9:00 AM CDT Office Visit [facility] - Family Medicine [facility] [address] [place] [address] Carmela Barney, REBEL [address] [place] [address] documented as of this encounter Visit Diagnoses Not on filedocumented in this encounter Additional Health Concerns Assessment Noted Time PHQ-9 Depression Total Score: 0 04/06/19 21 7:00 AM DIAMOND MOUNTER documented as of this encounter Care Teams Batter Out Relationship Specialty Start Date End Date Carmela Barney PAC [address] [place] [address] PCP - General Physician Hob Machine Operator 04/15/23 documented as of this encounter
--- OUTSIDE RECORDS SUMMARY | 2024-05-02 09:20 | XMS_ITS | Encounter Summary ---
Author Organization [facility] Address [address] [place] [address] Phone Care Team Providers Care School Speech Language Pathologist Name Role Phone Carmela Barney Primary Care Provider + Reason for Visit * Reason Comments Medication Refill Encounter Details Date Type Department Care Team (Late st Contact Info) Description 06/23/2023 [facility]ill [facility] Medicine [facility] [address]2 [place] [address] Lenin Mireles, BACKREST ASSEMBLER, CIRCUITS ENGINEER [address] [address] Medication Refill Social History Tobacco Use Types Packs/Day Years Used Date Smoking Tobacco: Never Smokeless Tobacco: Never Alcohol Use Standard Drinks/Week Comments Yes 0 (1 standard drink = 0.6 oz pur e alcohol) rare [facility] Utilities Answer Date Recorded In the [...] relatives? Three times a week 04/15/2023 Attends Orthodoxy Services Not on file 04/15 Active Member [...] Total Score - Questions 1-9 0 03/23 [facility] [place] of Occupat ional Health - Occupational Stress [...] place to sleep or slept in a [place] health care facility (including now)? No 04/15/2023 Education Answer Date [...] encounter Miscellaneous Notes * Telephone Encounter - Camila Foreman RMA - 06/25/2023 10:59 AM CDT LVM to R/S * Telephone Encounter - Carmela Barney PAC - 06/24/2023 8:42 AM CDT Next office visit needs rescheduled I am not in office on 10/15 * Telephone Encounter - Megan Ahn RN - 06/24/2023 8:37 AM CDT PDMP 03/24/23 Medication failed the protocol, provider to review and approve the medication order if appropriate. Requested Prescriptions Pending Prescriptions Disp Refills traMADol (ULTRAM) 50 MG Tablet [Pharmacy Med Name: TRAMADOL HCL 50 MG TABLET] 90 Tablet 0 Sig: TAKE 1 TABLET BY MOUTH EVERY 8 HOURS NEEDED FOR PAIN Not Delegated - Opioid Agonists Protocol Failed - 06/23/2023 7:57 AM Failed - This refill cannot be delegated Passed - Visit with relevant provider in past 12 months or upcoming 90 days Recent Visits Date Type Provider Dept 04/15/23 Office Visit Carmela Barney PAC [facility] 10/13/22 Office Visit Chantale Dewitt MD [facility] 07/08/22 Office Visit Chantale Dewitt MD [facility] Showing recent visits within past 365 days and meeting all other requirements Future Appointments No visits were found meeting these conditions. Showing future appointments within next 90 days and meeting all other requirements documented in this encounter Plan of Treatment Upcoming Encounters Date Type Department Care Team (Late st Contact Info) Description 08/24/2024 9:00 AM CDT Office Visit [facility] - Family [facility] [address] [place] [address] Carmela Barney PAC [address]2 [place] [address] documented as of this encounter Visit Diagnoses Diagnosis Chronic left-sided low back pain without sciatica documented in this encounter Additional Health Concerns Assessment Noted Time PHQ-9 Depression Total Score: 0 04/06/19 21 7:00 AM TREE CHIPPER documented as of this encounter Care Teams School Speech Language Pathologist Relationship Specialty Start Date End Date Carmela Barney PAC [address] [place] [address] PCP - General Physician Recording Studio Set Up Worker 04/15/23 documented as of this encounter
--- OUTSIDE RECORDS SUMMARY | 2024-05-02 09:20 | XMS_ITS | Encounter Summary ---
Author Organization [facility] Address [address] [facility] [place] [address] Phone Care Team Providers Care Electrical Controls Engineer Name Role Phone Chantale Dewitt MD Primary Care Provider +1- [phone] Carmela Barney Primary Care Provider + Reason for Visit * Reason Comments Medication Refill Encounter Details Date Type Department Care Team (Late st Contact Info) Description 02/08/2022 Refill [facility] [address] [place] [address] Chantale Dewitt MD [address]2 [place] [address] Medication Refill Social History Tobacco Use Types [...] encounter Miscellaneous Notes * Telephone Encounter - Catie Hunt RN - 02/10/2022 9:24 AM CST PDMP 11/12/2021 30 day supply filled. Last OV 10/07/2021 NDER ROLL PRESS OPERATOR documented in this encounter Plan of Treatment Upcoming Encounters Date Type Department Care Team (Late st Contact Info) Description 08/24/2024 9:00 AM CDT Office Visit [facility] - Family [facility] [address] [place] [address] Carmela Barney PAC [address] [place] [address] documented as of this encounter Visit Diagnoses Diagnosis Chronic left-sided low back pain without sciatica documented in this encounter Additional Health Concerns Assessment Noted Time PHQ-9 Depression Total Score: 0 04/06/19 7:00 AM CALENDER ROLL PRESS OPERATOR documented as of this encounter Care Teams Electrical Controls Engineer Relationship Specialty Start Date End Date Chantale Dewitt MD [address] [place] [address] PCP - General Family Medicine 04/03/16 04/14/23 Carmela Barney PAC [address] [place] [address] PCP - General Physician Freight Caller 04/15/23 documented as of this encounter
--- OUTSIDE RECORDS SUMMARY | 2024-05-02 09:20 | XMS_ITS | Encounter Summary ---
Author Organization [facility] Address [address] [facility] [place] [address] Phone Care Team Providers Care Appeals Reviewer Veteran Name Role Phone Chantale Dewitt MD Primary Care Provider +1- [phone] Carmela Barney Primary Care Provider + Reason for Visit * Reason Comments Medication Refill Encounter Details Date Type Department Care Team (Late st Contact Info) Description 04/13/2023 [address]ill [facility] - Family Medicine [facility] [address] [place] [address] Chantale Dewitt MD [address] [place] [address] Medication Refill Social History Tobacco Use Types Packs/Day Years Used Date Smoking Tobacco: Never Smokeless Tobacco: Never Alcohol Use Standard Drinks/Week Comments Yes 0 (1 standard drink = 0.6 oz pur e alcohol) rare [facility] Utilities Answer Date Recorded In the [...] relatives? Three times a week 04/15/2023 Attends Jainism Services Not on file 04/15 Active Member [...] Total Score - Questions 1-9 0 03/23 [facility] of Occupat ional Health - Occupational Stress [...] money to buy more. Never true 04/15/19 24 Ran Out of Food in the Last [...] place to sleep or slept in a fci (including now)? No 04/15/2023 Education Answer Date [...] on file documented as of this encounter Functional Status * Audit-C Score Answer Date of Assessment Author 0 04/15/2023 8:58 AM CODER OPERATOR [facility] * Within the last year, have you been humiliated or emotionally abused in other ways by your partner or ex-partner? Answer Date of Assessment Author No 04/15/2023 8:58 AM CODER OPERATOR [facility] * Within the last year, have you been afraid of your partner or ex-partner? Answer Date of Assessment Author No 04/15/2023 8:58 AM CODER OPERATOR [facility] * Q1: How often do you have a drink containing alcohol? Answer Date of Assessment Author Never 04/15/2023 8:58 AM CODER OPERATOR [facility] * Q2: How many drinks containing alcohol do you have on a typical day when you are drinking? Answer Date of Assessment Author Patient does not drink 04/15/2023 8:58 AM CODER OPERATOR [facility] * Q3: How often do you have six or more drinks on one occasion? Answer Date of Assessment Author Never 04/15/2023 8:58 AM CODER OPERATOR [facility] * Question Answer Date of Assessment Author Little interest or pleasure in doing things Not at all 04/15/2023 9:14 AM Lise Downey MA Feeling down, depressed, or hopeless Not at all 04/15/2023 9:14 AM Lise Downey MA * Over the past 2 weeks, how often have you been bothered by any of the following problems? Question Answer Date of Assessment Author Patient Health Questionnaire -2 Score 0 04/15/2023 9:14 AM Lise Downey MA documented as of this encounter Miscellaneous Notes * Telephone Encounter - Megan Ahn RN - 04/13/2023 12:14 PM CST Upcoming appt with Carmela 04/15/23 Medication failed the protocol, provider to review and approve the medication order if appropriate. Requested Prescriptions Pending Prescriptions Disp Refills celecoxib (CeleBREX) 200 MG Capsule [Pharmacy Med Name: CELECOXIB CAPS 200MG] 90 Capsule 0 Sig: TAKE 1 CAPSULE DAILY NSAIDs Protocol Failed - 04/13/2023 12:15 AM Failed - Normal serum creatinine in [...] Guzman 07/08/22 Office Visit Chantale Dewitt MD [facility] Showing recent visits within past 365 days and meeting all other requirements Future Appointments Date Type Provider Dept 04/15/23 Appointment Carmela Barney, [facility] Showing future appointments within next 90 days and meeting all other requirements Passed - No matching NSAID med order in past 45 days No matching medication orders between 02/27/2023 12:14 PM and 04/13/2023 12:14 PM Passed - AST less than 55 or [...] 04/08/2023 46.1 36.0 - 47.0 % Final ezetimibe (ZETIA) 10 MG Tablet [Pharmacy Med Name: EZETIMIBE TABS 10MG] 90 Tablet 0 Sig: TAKE 1 TABLET DAILY Intestinal Cholesterol Absorption Inhibitors Protocol Passed - 04/13/2023 12:15 AM Passed - Visit with relevant provider in past year or upcoming 90 days Recent Visits Date Type Provider Dept 10/13/22 Office Visit Chantale Dewitt MD [facility] 07/08/22 Office Visit Chantale Dewitt MD [facility] Showing recent visits within past 365 days and meeting all other requirements Future Appointments Date Type Provider Dept 04/15/23 Appointment Carmela Barney PAC [facility] Showing [...] Status 04/08/2023 131 (H) <130 mg/dL Final R OPERATOR documented in this encounter Plan of Treatment Upcoming Encounters Date Type Department Care Team (Late st Contact Info) Description 08/24/2024 9:00 AM CDT Office Visit [facility] - Family Medicine [place] [address] [place] [address] Carmela Barney PAC [address] [place] [address] documented as of this encounter Visit Diagnoses Not on filedocumented in this encounter Additional Health Concerns Assessment Noted Time PHQ-9 Depression Total Score: 0 04/06/19 7:00 AM CODER OPERATOR documented as of this encounter Care Teams Appeals Reviewer Veteran Relationship Specialty Start Date End Date Chantale Dewitt MD [address]2 [place] [address] PCP - General Family Medicine 04/03/16 04/14/23 Carmela Barney, [facility] [address]2 [place] [address] PCP - General Physician Manager Desktop 04/15/23 documented as of this encounter
--- OUTSIDE RECORDS SUMMARY | 2024-05-02 09:20 | XMS_ITS | Encounter Summary ---
Author Organization [facility] Address [address] [facility] [place] [address] Phone Care Team Providers Care Street Car Inspector Name Role Phone Chantale Dewitt MD Primary Care Provider +[phone] Carmlea Barney Primary Care Provider + Reason for Visit * Reason Comments Medication Refill Encounter Details Date Type Department Care Team (Late st Contact Info) Description 12/23/2022 Refill [facility] #2 [place] [address] Bora Roach MD #[address] [address] Medication Refill Social History Tobacco Use Types [...] Telephone Encounter - Megan Ahn RN - 12/23/2022 5:10 PM CDT PDMP 09/22/22 Medication failed the protocol, provider to review and approve the medication order if appropriate. Requested Prescriptions Pending Prescriptions Disp Refills traMADol (ULTRAM) 50 MG Tablet [Pharmacy Med Name: TRAMADOL HCL 50 MG TABLET] 90 Tablet 0 Sig: TAKE 1 TABLET BY MOUTH EVERY 8 HOURS NEEDED FOR PAIN Not Delegated - Opioid Agonists Protocol Failed - 12/23/2022 8:36 AM Failed - This refill cannot be delegated Passed - Visit with relevant provider in past 12 months or upcoming 90 days Recent Visits Date Type Provider Dept 10/13/22 Office Visit Chantale Dewitt MD [facility] 07/08/22 Office Visit Chantale Dewitt MD [facility] [...] Visit [facility] - [place] [address] [place] [address] Carmela Barney PAC [address] [place] [address] documented as of this encounter Visit Diagnoses Diagnosis Chronic left-sided low back pain without sciatica documented in this encounter Additional Health Concerns Assessment Noted Time PHQ-9 Depression Total Score: 0 04/06/19 21 7:00 AM CLINICAL RESEARCH NURSE documented as of this encounter Care Teams Street Car Inspector Relationship Specialty Start Date End Date Chantale Dewitt MD [address] [place] [address] PCP - General Family Medicine 04/03/16 04/14/23 Carmela Barney PAC [address] [place] [address] PCP - General Physician Agronomy Research Manager 04/15/23 documented as of this encounter
[2024-05-02 09:54] LABS: Add Urine Microscopic? NO; Appearance Urine Clear (Clear); Bilirubin Urine Negative (Negative); Blood Urine Negative (Negative); Color Urine Yellow (Yellow); Glucose Urine UA Negative (Negative); Ketones Urine Negative (Negative); Leukocyte Esterase Ur Negative LEU/UL (Negative); Nitrate Urine Negative (Negative); Protein Urine Negative (Negative); Specific Grav Ur 1.015 (1.001-1.035); Urobilinogen Urine 0.2 mg/dL (<2.0); pH Urine 5.5 (5.0-9.0)
[2024-05-02 10:05] LABS: Partial Thromboplastin Time 26.5 Seconds (22.3-36.8); Prothrombin Time 13.7 Seconds (11.1-14.7)
== END 2024-05-02 08:55 | disposition home or self-care (01) ==
LOC: ANHSURGERY 08:58
PROVIDERS: PCP Physician Assistant; Visit Provider Neurological Surgery
DX: M48.062 Spinal stenosis, lumbar region with neurogenic claudication (principal); Z01.812 Encounter for preprocedural laboratory examination
CPT/HCPCS: 36415; 81003; 85610; 85730

== ENCOUNTER 2024-05-10 00:57 | Day surgery (SDC) | payer MEDICARE, SELFPAY ==
[2024-02-05 14:32] VITALS: BMI 33.8
--- NOTE | 2024-02-05 14:47 | PC.NURSE ---
Addendum entered by Kelsie Rosado RN 04/29/24 15:03: Called pt, she is aware of new date and time of surgery as below, pt had no change in meds or status, labs will need repeated, and pt aware of all of below instructions. Questions answered Report to the Outpatient Waiting Room, entrance under the green pavilion located off [facility], at time __0600am on date __05/10/24 . Planned Procedure Time: _0730am .? Time changes happen often and if your time is changed the preop area will call you the afternoon before. - You and your visitor will be asked to self-screen and do not enter if you have any COVID symptoms. Please call surgeon if you need to reschedule. - A mask is optional within the hospital at this time. Patients may have clear liquids (water, carbonated beverages, clear teas, apple juice) until 3 hours prior to surgery with a maximum of 20 ounces. - No food from midnight until time of surgery and no smoking. This includes no chewing gum, candy or mints.( 04:30am) Take only the following medications with a SIP of water on the morning of surgery: __Tylenol or Tramadol as needed for pain DO NOT STOP ANY OF YOUR OTHER PRESCRIPTION MEDICATIONS PRIOR TO SURGERY EXCEPT THE FOLLOWING Medications to discontinue per physician Hold all vitamins and supplements for 3 days prior to surgery per Anesthesia. Date to take last dose 05/06/24 JRRN Original Note: Report to the Outpatient Waiting Room, entrance under the green pavilion located off [address], at time __0600am on date __02/23/24 . Planned Procedure Time: _0730am .? Time changes happen often and if your time is changed the preop area will call you the afternoon before. - You and your visitor will be asked to self-screen and do not enter if you have any COVID symptoms. Please call surgeon if you need to reschedule. - A mask is optional within the hospital at this time. Patients may have clear liquids (water, carbonated beverages, clear teas, apple juice) until 3 hours prior to surgery with a maximum of 20 ounces. - No food from midnight until time of surgery and no smoking. This includes no chewing gum, candy or mints.( 04:30am) Take only the following medications with a SIP of water on the morning of surgery: __Tylenol or Tramadol as needed for pain DO NOT STOP ANY OF YOUR OTHER PRESCRIPTION MEDICATIONS PRIOR TO SURGERY EXCEPT THE FOLLOWING Medications to discontinue per physician Hold all vitamins and supplements for 3 days prior to surgery per Anesthesia. Date to take last dose 02/19/24 Please no make-up, nail german, hairspray, perfume, deodorant, or body powder the day of surgery.? No jewelry (including any body piercings) or valuables the day of surgery, leave them at home.? Please take a shower or bath the night before, or the morning of, surgery with an antibacterial soap.? Wear comfortable, loose fitting clothing.? - Jewelry must be removed prior to entering the operating room.? Rings and piercings that are not removed may be cut off. - The hospital will not accept responsibility for valuables.? - Please leave all valuables, including medications, at home the day of surgery. If you are going home after surgery, a licensed otr flatbed driver must drive you home.? - NO public transportation without another adult if you receive anesthesia. - We recommend that an adult stay with you for 24 hours following discharge. - We also recommend that you do not drive, make important decision, drink alcoholic beverages, or take any drugs that were not prescribed by your health care provider for at least 24 hours after your discharge time. Follow any additional instructions given to you from your surgeon. Telephone instructions given to ___Patient and asked if any additional questions and then verbalized understanding. Patient advised to call surgeon office or pre surgery nurse liaison [phone] if any additional questions.
--- NOTE | 2024-02-16 10:50 | SUR.PREOP ---
conversation with patient and family, states she desires to suspend DNR status for planned surgery/ recovery.
[2024-05-10] VITALS (11 sets, daily range): BP systolic 120–168; BP diastolic 47–74; PULSE 80–97; RESP 12–19; TEMP 36.5–37.3; O2SAT 92–99
--- NOTE | ~2024-05-10 | XR_ITS ---
EXAMINATION: XR fluoroscopy no charge DATE: 05/10/2024 09:43 INDICATION: Left L4-L5 hemilaminectomy TECHNIQUE: Single lateral fluoroscopic image of the lower lumbar spine was obtained during procedure performed by Dr. Le. Radiologist was not present for the imaging or procedure. The amount of fl uoroscopy time used during this procedure was 0.1 minutes. Total DAP was 0.380 Gycm^2. COMPARISON: None. FINDINGS: The tip of a metallic probe projects over the posterior elements at L4-L5. IMPRESSION: 1. Fluoroscopy utilized during reported left L4-L5 hemilaminectomy. See procedure note for further de tail. Reviewed, dictated and finalized at location A. CE ASSISTANT IMPRESSION: 1. Fluoroscopy utilized during reported left L4-L5 hemilaminectomy. See procedu re note for further detail.
--- OUTSIDE RECORDS SUMMARY | 2024-05-10 01:00 | XMS_ITS | Encounter Summary ---
Author Organization [facility] Address [address] [facility] [facility] [place] [address] Phone Care Team Providers Care Assembler Trim Name Role Phone Chantale Dewitt MD Primary Care Provider [phone] Carmela Barney Primary Care Provider + Reason for Visit * Reason Comments Medication Refill Encounter Details Date Type Department Care Team (Late st Contact Info) Description 12/23/2022 Refill [facility] #2 [place] [address] Bora Roach MD #[address] [address] Medication Refill Social History Tobacco Use Types [...] [facility] - Family Medicine - [place] [address] [place] [address] Carmela Barney PAC [address] [place] [address] documented as of this encounter Visit Diagnoses Diagnosis Chronic left-sided low back pain without sciatica documented in this encounter Additional Health Concerns Assessment Noted Time PHQ-9 Depression Total Score: 0 04/06/19 21 7:00 AM RELIEF DOCKING MASTER documented as of this encounter Care Teams Assembler Trim Relationship Specialty Start Date End Date Chantale Dewitt MD [address] [place] [address] PCP - General Family Medicine 04/03/16 04/14/23 Carmela Barney PAC [address] [place] [address] PCP - General Physician Caterers Helper 04/15/23 documented as of this encounter
--- OUTSIDE RECORDS SUMMARY | 2024-05-10 01:00 | XMS_ITS | Referral Summary ---
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 Gender Identity Not on file Sexual Orientation [...] on file Medical Devices Implanted Type Area Admitting Coordinator Device Identifier Shelf Expiration Date Model / Serial / Lot Cmpnt Truliant Ps Cement Fem Right 4 - [id number] - [id number] Implanted:Qty: 1 on 09/14/2017 by Brandon Mistry MD at [facility] Right: Knee Exactech 07/15/2027 [id number] / [id number] / Optetrak 3 Peg Advanced Patella Cemented, Thickness 8.2mm 32mm X 37mm Implanted:Qty: 1 on 09/14/2017 by Brandon Mistry MD at [facility] Right: Knee Exactech [id number] 05/07/2022 / [id number] / Insert Tibial 4 9mm Knee Truliant Strl - [id number] - [id number] Implanted:Qty: 1 on 09/14/2017 by Brandon Mistry MD at [facility] Right: Knee [employer]actech 07/07/[id number] 09 / [id number] / Tray Tibial Truliant 4f/4t Knee Strl Ltxfre - [id number] - [id number] Implanted:Qty: 1 on 09/14/2017 by Brandon Mistry MD at [facility] Right: Knee [employer]ech 05/19/[id number] 40 / [id number] / [employer] [id number] Smartset High Viscosity Cement 40gm Bone Gentamicin - [id number] Implanted:Qty: 1 on 09/14/2017 by Brandon Mistry MD at [facility] Right: Knee [employer] 12/20/2018 [id number] / / [id number] [employer] [id number] Smartset High Viscosity Cement 40gm Bone Gentamicin - [id number] Implanted:Qty: 1 on 09/14/2017 by Brandon Mistry MD at [facility] Right: Knee [employer] 11/20/2018 [id number] / / [id number] Insurance MEDICARE [facility] MEDICARE [facility] MEDICARE [facility] MEDICARE [facility] Advance Directives For more information, please contact: [phone] * Full Code (Latest Code Status on File) Date Activated Date Inactivated Comments 09/14/2017 6:23 PM 09/15/2017 7:23 PM Care Teams Program Analyst Relationship Specialty Start Date End Date Terrance Elena Jr., MD [address] [place] [address] PCP - General 09/14/17 Carmela Edwards, PROVIDER ENROLLMENT SPECIALIST Process Improvement Engineer Physical Therapy 09/04/17
--- OUTSIDE RECORDS SUMMARY | 2024-05-10 01:00 | XMS_ITS | Encounter Summary ---
Author Organization [facility] Address [address] [place] [address] Phone Care Team Providers Care Oil Distributor Name Role Phone Carmela Barney Primary Care Provider + Reason for Visit * Reason Comments Medication Refill Encounter Details Date Type Department Care Team (Late st Contact Info) Description 06/23/2023 Refill [facility] #2 [place] [address] Lenin Mireles, FIRE LIEUTENANT MARINE, EXCEL ANALYST [address] [address] Medication Refill Social History Tobacco Use Types Packs/Day Years Used Date Smoking Tobacco: Never Smokeless Tobacco: Never Alcohol Use Standard Drinks/Week Comments Yes 0 (1 standard drink = 0.6 oz pur e alcohol) rare [facility] Utilities Answer Date Recorded In the past [...] relatives? Three times a week 04/15/2023 Attends Amish Services Not on file 04/15 Active Member [...] Total Score - Questions 1-9 0 03/23 [facility] of Occupat ional Health - Occupational Stress [...] place to sleep or slept in a chcf (including now)? No 04/15/2023 Education Answer Date [...] Visit [facility] - Family [facility] #2 [place] [address] Carmela Barney PAC [address] [place] [address] documented as of this encounter Visit Diagnoses Diagnosis Chronic left-sided low back pain without sciatica documented in this encounter Additional Health Concerns Assessment Noted Time PHQ-9 Depression Total Score: 0 04/06/19 21 7:00 AM FINISH MILL OPERATOR documented as of this encounter Care Teams Oil Distributor Relationship Specialty Start Date End Date Carmela Barney PAC [address] [place] [address] PCP - General Physician Sanitation Worker Cleaning Equipment 04/15/23 documented as of this encounter
--- OUTSIDE RECORDS SUMMARY | 2024-05-10 01:00 | XMS_ITS | Encounter Summary ---
Author Organization [facility] Address [address] [facility] [place] [address] Phone Care Team Providers Care Fish Cutter Name Role Phone Chantale Dewitt MD Primary Care Provider +1- [phone] Carmela Barney Primary Care Provider + Reason for Visit * Reason Comments Medication Refill Encounter Details Date Type Department Care Team (Late st Contact Info) Description 04/13/2023 Refill [facility] - Family Medicine [facility] [address] [place] [address] Chantale Dewitt MD [address] [place] [address] Medication Refill Social History Tobacco Use Types Packs/Day Years Used Date Smoking Tobacco: Never Smokeless Tobacco: Never Alcohol Use Standard Drinks/Week Comments Yes 0 (1 standard drink = 0.6 oz pur e alcohol) rare [facility] Utilities Answer Date Recorded In the [...] relatives? Three times a week 04/15/2023 Attends Scientology Services Not on file 04/15 Active Member [...] Total Score - Questions 1-9 0 03/23 [facility] of Occupat ional Health - [...] place to sleep or slept in a alf (including now)? No 04/15/2023 Education Answer Date [...] of Assessment Author 0 04/15/2023 8:58 AM TRUST MAIL CLERK [facility] * Within the last year, have you been humiliated or emotionally abused in other ways by your partner or ex-partner? Answer Date of Assessment Author No 04/15/2023 8:58 AM TRUST MAIL CLERK [facility] * Within the last year, have you been afraid of your partner or ex-partner? Answer Date of Assessment Author No 04/15/2023 8:58 AM TRUST MAIL CLERK [facility] * Q1: How often do you have a drink containing alcohol? Answer Date of Assessment Author Never 04/15/2023 8:58 AM TRUST MAIL CLERK [facility] * Q2: How many drinks containing alcohol do you have on a typical day when you are drinking? Answer Date of Assessment Author Patient does not drink 04/15/2023 8:58 AM TRUST MAIL CLERK [facility] * Q3: How often do you have six or more drinks on one occasion? Answer Date of Assessment Author Never 04/15/2023 8:58 AM TRUST MAIL CLERK [facility] * Question Answer [...] Provider Dept 04/15/23 Appointment Carmela Barney, [facility] Showing future appointments within next 90 [...] Status 04/08/2023 131 (H) <130 mg/dL Final T MAIL CLERK documented in this encounter Plan of Treatment Upcoming Encounters Date Type Department Care Team (Late st Contact Info) Description 08/24/2024 9:00 AM CDT Office Visit [facility] - Family Medicine [place] [address] [place] [address] Carmela Barney PAC [address] [place] [address] documented as of this encounter Visit Diagnoses Not on filedocumented in this encounter Additional Health Concerns Assessment Noted Time PHQ-9 Depression Total Score: 0 04/06/19 7:00 AM TRUST MAIL CLERK documented as of this encounter Care Teams Fish Cutter Relationship Specialty Start Date End Date Chantale Dewitt MD [address] [place] [address] PCP - General Family Medicine 04/03/16 04/14/23 Carmela Barney, [facility] [address] [place] [address] PCP - General Physician Web Content Director 04/15/23 documented as of this encounter
--- OUTSIDE RECORDS SUMMARY | 2024-05-10 01:00 | XMS_ITS | Encounter Summary ---
Author Organization [facility] Address [address] [place] [address] Phone Care Team Providers Care Chipping Machine Operator Name Role Phone Carmela Barney Primary Care Provider + Reason for Visit * Reason Comments Medication Refill Encounter Details Date Type Department Care Team (Late st Contact Info) Description 07/10/2023 Refill [facility] #2 [place] [address] Cierra Pearson APRN, SHOE TREER #[address] [address] Medication Refill Social History Tobacco Use Types Packs/Day Years Used Date Smoking Tobacco: Never Smokeless Tobacco: Never Alcohol Use Standard Drinks/Week Comments Yes 0 (1 standard drink = 0.6 oz pur e alcohol) rare [facility] Utilities Answer Date Recorded In the [...] relatives? Three times a week 04/15/2023 Attends Tenriism Services Not on file 04/15 Active Member [...] Total Score - Questions 1-9 0 03/23 [facility] of Occupat ional Health - Occupational Stress [...] place to sleep or slept in a prison (including now)? No 04/15/2023 Education Answer Date [...] Guzman 10/13/22 Office Visit [facility] Showing recent visits within past 365 days [...] Description 08/24/2024 9:00 AM CDT Office Visit [facility] Group - Family Medicine [facility] #[address] [place] [address] Carmela Barney, REBEL [address] [place] [address] documented as of this encounter Visit Diagnoses Not on filedocumented in this encounter Additional Health Concerns Assessment Noted Time PHQ-9 Depression Total Score: 0 04/06/19 21 7:00 AM APPLICATIONS PROGRAMMER ANALYST documented as of this encounter Care Teams Chipping Machine Operator Relationship Specialty Start Date End Date Carmela Barney PAC [address] [place] [address] PCP - General Physician Pt Skilled 04/15/23 documented as of this encounter
--- OUTSIDE RECORDS SUMMARY | 2024-05-10 01:00 | XMS_ITS | Encounter Summary ---
Author Organization [facility] Address [address] [facility] [place] [address] Phone Care Team Providers Care Photographer Name Role Phone Chantale Dewitt MD Primary Care Provider [phone]- [phone] Carmela Barney Primary Care Provider + Reason for Visit * Reason Comments Medication Refill Encounter Details Date Type Department Care Team (Late st Contact Info) Description 03/24/2023 Refill [facility] [address] [place] [address] Chantale Dewitt MD [address] [place] [address] Medication Refill Social History Tobacco Use Types [...] Guzman 07/08/22 Office Visit Chantale Dewitt MD [facility] Showing recent visits within past 365 days and meeting all other requirements Future Appointments Date Type Provider Dept 04/15/23 Appointment Carmela Barney PAC [facility] Showing future appointments within next 90 days and meeting all other requirements D DAYCARE WORKER documented in this encounter Plan of Treatment Upcoming Encounters Date Type Department Care Team (Late st Contact Info) Description 08/24/2024 9:00 AM CDT Office Visit [facility] [address] [place] [address] Carmela Barney, REBEL [address] [place] [address] documented as of this encounter Visit Diagnoses Diagnosis Chronic left-sided low back pain without sciatica documented in this encounter Additional Health Concerns Assessment Noted Time PHQ-9 Depression Total Score: 0 04/06/19 21 7:00 AM CHILD DAYCARE WORKER documented as of this encounter Care Teams Photographer Relationship Specialty Start Date End Date Chantale Dewitt MD [address] [place] [address] PCP - General Family Medicine 04/03/16 04/14/23 Carmela Barney, [facility] [address] [place] [address] PCP - General Physician Acquisition Consultant 04/15/23 documented as of this encounter
--- OUTSIDE RECORDS SUMMARY | 2024-05-10 01:00 | XMS_ITS | Clinical Summary ---
Author Organization [facility] Address [address] [facility] [address] [place] [address] Phone Care Team Providers Care Automation Machine Builder Name Role Phone Savita Wendy PAC Primary Care Provider + Allergies Active Allergy Reactions Criticality Noted Date Comments Oxycodone-Acetaminop hen Other (see Comments) 10/29/2017 felt like there was a balloon in my chest Sulfamethoxazole-Tri methoprim Diarrhea,Nausea,Vomiti ng Medications Multiple Vitamins-Minerals (MULTIVITAL PO) Take by mouth. Active ezetimibe (ZETIA) 10 MG Tablet TAKE 1 TABLET DAILY 90 Tablet 3 4 Active celecoxib (CeleBREX) 200 MG Capsule TAKE 1 CAPSULE DAILY 90 Capsule 3 4 Active irbesartan (AVAPRO) 150 MG Tablet TAKE 1 TABLET BY MOUTH EVERY DAY 90 Tablet 3 4 Active hydroCHLOROthiazi de 25 MG TabletIndications :Essential hypertension TAKE 1 TABLET BY MOUTH EVERY DAY 90 Tablet 1 5 Active traMADol (ULTRAM) 50 MG TabletIndications :Central stenosis of spinal canal Take 1 Tablet by mouth every 6 hours as needed for Moderate or more severe pain. 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 Encounters Date Type Department Care Team Description 04/29/2024 Telephone [facility] [address] [place] [address] Carmela Barney PAC Labs Only 04/26/2024 Results Follow-Up [facility] [address] [place] [address] Carmela Barney, PAC 04/20/2024 Telephone [facility] [address] [place] [address] Carmela Barney, PAC 04/18/2024 3:00 PM RN OUTPATIENT SURGERY Lab [facility] [address] [address] [facility] Essential hypertension; Elevated MCV; Hyperlipidemia, unspecified hyperlipidemia type Discharge Disposition: Discharged to home or Selfcare 04/18/2024 2:15 PM RN OUTPATIENT SURGERY Office Visit [facility] [address] [facility] [place] [address] Carmela Barney, PAC Essential hypertension (Primary Dx); Spinal stenosis of lumbar region with neurogenic claudication Discharge Disposition: Discharged to home or Selfcare 04/18/2024 Travel 04/05/2024 Telephone [facility] [address] [place] [address] Carmela Barney PAC Medication Management 04/05/2024 Refill [facility] [address] [place] [address] Carmela Barney PAC Medication Refill 03/17/2024 3:00 PM RN OUTPATIENT SURGERY Office Visit [facility] [address] [place] [address] Teresa aMrsh, DIRECTOR OF CLAIMS, [employer] Pre-op evaluation (Primary Dx); Primary hypertension; Dyslipidemia; RBBB Discharge Disposition: Discharged to home or Selfcare 03/17/2024 Travel 03/04/2024 [facility] [place] [address] Carmela Barney PAC Medication Refill 03/04/2024 [facility]phone [facility] [address] [place] [phone] Carmela Barney PAC Follow-up 02/17/2024 [facility] [address] [place] [address] Carmela Barney PAC Medication Management; Advice Only (Abnormal EKG and urinalysis results Back surgery L3-L4 cancelled for 02/23/24) 02/08/2024 11:30 AM RN OUTPATIENT SURGERY Office Visit [facility] [address] [place] [address] Carmela Barney PAC Essential hypertension (Primary Dx); Hyperlipidemia, unspecified hyperlipidemia type; Elevated MCV Discharge Disposition: Discharged to home or Selfcare 02/08/2024 [facility] [address] [place] [phone] Carmela Barney PAC Advice Only 02/08/2024 Travel 02/08/2024 [facility] [place] [address] Carmela Barney PAC Medication Refill from Last 3 Months Immunizations Immunization Administration Dates Next Due Covid-19 Vaccine, Vector-nr, Rs-ad26, Pf, 0.5 Ml ([employer]) 08/03/2020 TDAP Vaccine 06/07/2021 Family History Medical [...] = 0.6 oz pur e alcohol) rare [facility] Utilities Answer Date Recorded In the [...] often do you attend chur ch or shinto services? More than 4 times per year 02/08/2024 Do you belong to any clubs o r organizations such as adventism groups, unions, fraternal or athletic groups, or [...] Total Score - Questions 1-9 0 03/24 [facility] of Occupat ional Health - Occupational Stress [...] place to sleep or slept in a penitentiary (including now)? No 04/15/2023 Housing Stability Vital Sign Answer Jagdish e Recorded In the last 12 months, was t here a time when you were not able to pay the mortgage or rent on time? No 02/08/2024 In the past 12 months, how m any times have you moved where you were living? 0 02/08/2024 At any time in the past [address] [facility], were you homeless or living in a penitentiary (including now)? No 02/08/2024 Education Answer Date [...] Comments Blood Pressure 146/72 04/18/2024 2:10 PM RN OUTPATIENT SURGERY Pulse 91 04/18/2024 2:10 PM RN OUTPATIENT SURGERY Temperature 36.7 C (98 F) 04/18/2024 2:10 PM RN OUTPATIENT SURGERY Respiratory Rate 16 03/17/2024 2:52 PM RN OUTPATIENT SURGERY Oxygen Saturation 98% 04/18/2024 2:10 PM RN OUTPATIENT SURGERY Inhaled Oxygen Concentration - - Weight 105.7 kg (233 lb) 04/18/2024 2:10 PM RN OUTPATIENT SURGERY Height 175.3 cm (5' 9 ) 04/18/2024 2:10 PM RN OUTPATIENT SURGERY Body Mass Index 34.41 04/18/2024 2:10 PM RN OUTPATIENT SURGERY Plan of Treatment Upcoming Encounters Date Type Department Care Team (Late st Contact Info) Description 08/24/2024 9:00 AM CDT Office Visit [facility] [address] [place] [address] Carmela Barney, PAC [address] [place] [address] Health Maintenance Due Date Last Done Comments [...] WITH AUTO DIFFERENTIAL Routine 04/18/2024 2:55 PM RN OUTPATIENT SURGERY Essential hypertension Elevated MCV LIPID PANEL Routine 04/18/2024 2:55 PM RN OUTPATIENT SURGERY Hyperlipidemia, unspecified hyperlipidemia type FOLIC ACID (FOLATE) Routine 04/18/2024 2 :55 PM RN OUTPATIENT SURGERY Elevated MCV VITAMIN B12 Routine 04/18/2024 2:55 PM RN OUTPATIENT SURGERY Elevated MCV MAGNESIUM (MG) Routine 04/18/2024 2:55 PM RN OUTPATIENT SURGERY Essential hypertension COMPLETE BLOOD COUNT (CBC) WITH DIFF Routine 04/18/2024 2:55 PM RN OUTPATIENT SURGERY Essential hypertension Elevated MCV CMP (COMPREHENSIVE METABOLIC PANEL) Routine 04/18/2024 2:55 PM RN OUTPATIENT SURGERY Essential hypertension EKG 12 LEAD Routine 03/17/2024 2:59 PM RN OUTPATIENT SURGERY Pre-op evaluation EKG SCAN 02/16/2024 12:00 AM RN OUTPATIENT SURGERY [place] DENSITOMETRY AXIAL SKELETON Routine 10/10/2021 9:48 AM CDT Menopause from Last 3 Months or Most Recently Relevant to Health Maintenance Results * (ABNORMAL) CBC WITH AUTO DIFFERENTIAL (04/18/2024 2:55 PM RN OUTPATIENT SURGERY) WBC 8.19 4.00 - 12.00 10(3)/mcL 04/18/2024 3:56 PM RN OUTPATIENT SURGERY [facility] RBC 4.24 3.80 - 5.30 10(6)/mcL 04/18/2024 3:56 PM RN OUTPATIENT SURGERY [facility] HEMOGLOBIN (HGB) 13.9 12.0 - 15.8 g/dL 04/18/2024 3:56 PM RN OUTPATIENT SURGERY [facility] HEMATOCRIT (HCT) 42.4 36.0 - 47.0 % 04/18/2024 3:56 PM RN OUTPATIENT SURGERY [facility] MCV 100.0(H) 82.0 - 96.0 fL 04/18/2024 3:56 PM [facility] MCH 32.8 26.0 - 34.0 pg 04/18/2024 3:56 PM [facility] MCHC 32.8 31.0 - 36.0 g/dL 04/18/2024 3:56 PM [facility] PLATELET COUNT 247 140 - 440 10(3)/mcL 04/18/2024 3:56 PM [facility] RDW 12.9 11.8 - 15.5 % 04/18/2024 3:56 PM [facility] MPV 9.5(L) 9.7 - 12.4 fL 04/18/2024 3:56 PM [facility] NEUTROPHILS 66.0 47.0 - 73.0 % 04/18/2024 3:56 PM [facility] LYMPHOCYTES 22.6 18.0 - 42.0 % 04/18/2024 3:56 PM [facility] MONOCYTES 8.8 4.0 - 12.0 % 04/18/2024 3:56 PM [facility] EOSINOPHILS 2.1 0.0 - 5.0 % 04/18/2024 3:56 PM [facility] BASOPHILS 0.5 0.0 - 1.0 % 04/18/2024 3:56 PM [facility] ABSOLUTE NEUTROPHILS 5.41 1.60 - 7.70 10(3)/mcL 04/18/2024 3:56 PM [facility] ABSOLUTE LYMPHOCYTES 1.85 1.30 - 3.20 10(3)/mcL 04/18/2024 3:56 PM [facility] ABSOLUTE MONOCYTES 0.72 0.20 - 1.00 10(3)/mcL 04/18/2024 3:56 PM [facility] ABSOLUTE EOSINOPHIL 0.17 0.00 - 0.40 10(3)/mcL 04/18/2024 3:56 PM [facility] ABSOLUTE BASOPHILS 0.04 0.00 - 0.10 10(3)/[facility] 04/18/2024 3:56 PM RN OUTPATIENT SURGERY [facility] NRBC PER 100 WBC 0 04/18/19 3:56 PM RN OUTPATIENT SURGERY [facility] Blood Venipuncture / Unknown 04/18/2024 2:55 PM RN OUTPATIENT SURGERY 04/18/2024 2:55 PM RN OUTPATIENT SURGERY us Carmela Alexanderlucy PAC HEMATOLOGY ORDERABLES Fi nal Result [facility] [address] [place] [address] * VITAMIN B12 (04/18/2024 2:55 PM RN OUTPATIENT SURGERY) VITAMIN B12 664 213 - 816 pg/mL 04/18/2024 5:14 PM RN OUTPATIENT SURGERY [facility] Blood Venipuncture / Unknown 04/18/2024 2:55 PM RN OUTPATIENT SURGERY 04/18/2024 2:55 PM RN OUTPATIENT SURGERY us Carmela Alexanderdeepalineema PAC CHEMISTRY ORDERABLES Fin al Result Performing Organization Address City/[facility] Co de Phone Number [facility] [address] [place] [address] * MAGNESIUM (MG) (04/18/2024 2:55 PM RN OUTPATIENT SURGERY) MAGNESIUM 2.0 1.6 - 2.6 mg/dL 04/18/2024 4:32 PM RN OUTPATIENT SURGERY [facility] Blood Venipuncture / Unknown 04/18/2024 2:55 PM RN OUTPATIENT SURGERY 04/18/2024 2:55 PM RN OUTPATIENT SURGERY us Carmela Narayaner PAC CHEMISTRY ORDERABLES Fin al Result Performing Organization Address City/[facility]/ZIP Co de Phone Number [facility] [address] [place] [address] * (ABNORMAL) LIPID PANEL (04/18/2024 2:55 PM RN OUTPATIENT SURGERY) CHOLESTEROL 173 <200 mg/dL 04/18/2024 4:32 PM RN OUTPATIENT SURGERY [facility] TRIGLYCERIDES 201(H) <150 mg/dL 04/18/2024 4:32 PM RN OUTPATIENT SURGERY [facility] HDL CHOLESTEROL 55 >40 mg/dL 4:32 PM RN OUTPATIENT SURGERY [facility] LDL 78 <130 mg/dL 04/18/2024 4:32 PM RN OUTPATIENT SURGERY [facility] VLDL 40 10 - 50 mg/dL 04/18/2024 4:32 PM RN OUTPATIENT SURGERY [facility] CHOL/HDL RATIO 3.1 0.0 - 4.4 04/18/2024 4:32 PM RN OUTPATIENT SURGERY [facility] NON-HDL CHOLESTEROL 118 <130 mg/dL 04/18/2024 4:32 PM RN OUTPATIENT SURGERY [facility] IS THE PATIENT REQUIRED TO BE FASTING? No 04/18/2024 4:32 PM RN OUTPATIENT SURGERY [facility] Blood Venipuncture / Unknown 04/18/2024 2:55 PM RN OUTPATIENT SURGERY 04/18/2024 2:55 PM RN OUTPATIENT SURGERY Carmela Barney PAC CHEMISTRY ORDERABLES Fin al Result [facility] [address] [place] [address] * FOLIC ACID (FOLATE) (04/18/2024 2:55 PM RN OUTPATIENT SURGERY) FOLATE 12.6 7.0 - 31.4 ng/mL 04/18/2024 5:14 PM RN OUTPATIENT SURGERY [facility] IS THE PATIENT REQUIRED TO BE FASTING? No 04/18/2024 5:14 PM RN OUTPATIENT SURGERY [facility] Blood Venipuncture / Unknown 04/18/2024 2:55 PM RN OUTPATIENT SURGERY 04/18/2024 2:55 PM RN OUTPATIENT SURGERY Carmela Alexanderlucy PAC CHEMISTRY ORDERABLES Fin al Result [facility] [address] [place] [address] * (ABNORMAL) CMP (COMPREHENSIVE METABOLIC PANEL) (04/18/2024 2:55 PM RN OUTPATIENT SURGERY) SODIUM 139 136 - 145 mmol/L 04/18/2024 4:32 PM RN OUTPATIENT SURGERY [facility] POTASSIUM 4.6 3.5 - 5.1 mmol/L 04/18/2024 4:32 PM RN OUTPATIENT SURGERY [facility] CHLORIDE 108(H) 98 - 107 mmol/L 04/18/2024 4:32 PM [facility] CO2, VENOUS 23 22 - 30 mmol/L 04/18/2024 4:32 PM [facility] ANION GAP 12.6 <18.0 mmol/L 04/18/2024 4:32 PM RN OUTPATIENT SURGERY [facility] GLUCOSE 96 70 - 99 mg/dL 04/18/2024 4:32 PM RN OUTPATIENT SURGERY [facility] BUN 28(H) 10 - 20 mg/dL 04/18/2024 4:32 PM [facility] CREATININE, BLOOD 1.45(H) 0.60 - 1.00 mg/dL 04/18/2024 4:32 PM [facility] BUN/CREATININE RATIO 19 12 - 20 ratio 04/18/2024 4:32 PM [facility] TOTAL PROTEIN 8.1(H) 6.0 - 8.0 g/dL 04/18/2024 4:32 PM [facility] ALBUMIN 4.1 3.5 - 5.0 g/dL 04/18/2024 4:32 PM [facility] A/G RATIO 1.0 1.0 - 2.2 04/18/2024 4:32 PM [facility] CALCIUM 9.4 8.7 - 10.5 mg/dL 04/18/2024 4:32 PM [facility] T BILI 0.5 0.2 - 1.2 mg/dL 04/18/2024 4:32 PM RN OUTPATIENT SURGERY [facility] SGOT (AST) 21 6 - 42 U/L 04/18/2024 4:32 PM RN OUTPATIENT SURGERY [facility] SGPT (ALT) 14 6 - 55 U/L 04/18/2024 4:32 PM RN OUTPATIENT SURGERY [facility] ALKALINE PHOSPHATASE 89 40 - 150 U/L 04/18/2024 4:32 PM RN OUTPATIENT SURGERY [facility] IS THE PATIENT REQUIRED TO BE FASTING? No 04/18/2024 4:32 PM RN OUTPATIENT SURGERY [facility] GFR, ESTIMATED 35(L) >=60 04/18/2024 4:32 PM RN OUTPATIENT SURGERY [facility] Comment: Creatinine Clearance is the preferred criteria for selecting drug dose adjustments in renally impaired patients. The GFR is provided as additional pertinent clinical information. GFR is reported in mL/min/1.73 sq m. Calculation based on the Chronic Kidney Disease Epidemiology Collaboration (CKD- EPI) equation refit without adjustment for race. GFR, EST. 41(L) >=60 025 4:32 PM RN OUTPATIENT SURGERY [facility] GFR, EST. NONAFRICAN 34(L) >=60 04/18/2024 4:32 PM RN OUTPATIENT SURGERY [facility] Blood Venipuncture / Unknown 04/18/2024 2:55 PM RN OUTPATIENT SURGERY 04/18/2024 2:55 PM RN OUTPATIENT SURGERY us Carmela Barney PAC CHEMISTRY ORDERABLES Fin al Result [facility] [address] [place] [address] * EKG 12 LEAD (03/17/2024 2:59 PM RN OUTPATIENT SURGERY) Ventricular Rate 84 BPM EXTERNAL EKG Atrial Rate 84 BPM EXTERNAL EKG P-R Interval 180 ms EXTERNAL EKG QRS Duration 128 ms EXTERNAL EKG Q-T Duration 398 ms EXTERNAL EKG QTC CALCULATION 470 ms EXTERNAL EKG P [place] 37 degrees EXTERNAL EKG R [place] -38 degrees EXTERNAL EKG T [place] 20 degrees EXTERNAL EKG 03/17/2024 2:59 PM RN OUTPATIENT SURGERY Impressions EXTERNAL EKG - 04/17/2024 11:25 AM RN OUTPATIENT SURGERY Normal sinus rhythm Left axis deviation Right bundle branch block Inferior infarct , 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 infarct , age undetermined Abnormal ECG ~ Confirmed by Chucho Foss ([id number]) on 04/17/2024 11:25:36 AM Narrative Procedure Note Chucho Foss MD - 04/17/2024 IMPRESSION: Normal sinus rhythm Left axis deviation Right bundle branch block Inferior infarct , 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 infarct , age undetermined Abnormal ECG ~ Confirmed by Chucho Foss ([id number]) on 04/17/2024 11:25:36 AM Teresa Marsh APRN, CNP IMG ECG ORDERABLES F inal Result EXTERNAL EKG * EKG SCAN (02/16/2024 12:00 AM RN OUTPATIENT SURGERY) 02/16/2024 us Provider Scan IMG ECG ORDERABLES [...] Narrative 10/10/2021 1:01 PM CDT EXAM DESCRIPTION: [facility] BONE DENSITOMETRY AXIAL SKELETON REASON FOR STUDY: 85 y/o year old F with given history of screening. 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 AG: ISIDRO Report ID: [id number] Reading Location: [id number] Procedure Note Ryne Evans MD - 10/10/2021 EXAM DESCRIPTION: [facility] BONE DENSITOMETRY AXIAL SKELETON REASON FOR STUDY: 85 y/o year old F with given history of screening. 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 AG: ISIDRO Report ID: [id number] Reading Location: [place] [address] IMPRESSION: Normal. 10 year risk for a [...] Most Recently Relevant to Health Maintenance Insurance MEDICARE Care Teams Automation Machine Builder Relationship Specialty Start Date End Date Carmela Barney PAC [address] [place] [address] PCP - General Physician Casino Floor Runner 04/15/23
--- OUTSIDE RECORDS SUMMARY | 2024-05-10 01:00 | XMS_ITS | Encounter Summary ---
Author Organization [facility] Address [address] [facility] [place] [address] Phone Care Team Providers Care Automobile Parker Name Role Phone Chantale Dewitt MD Primary Care Provider [phone] Carmela Barney Primary Care Provider + Reason for Visit * Reason Comments Medication Refill Encounter Details Date Type Department Care Team (Late st Contact Info) Description 07/07/2022 Refill [facility] - Family Medicine [facility] [address] [place] [address] Chantale Dewitt MD [address] [place] [address] Medication Refill Social History Tobacco Use Types [...] Provider Dept 07/08/22 Appointment Chantale Dewitt MD Osvaldo Guzman Showing future appointments within next 90 days and meeting all other requirements documented in this encounter Plan of Treatment Upcoming Encounters Date Type Department Care Team (Late st Contact Info) Description 08/24/2024 9:00 AM CDT [facility] Visit [facility] - [place] [address] [place] [address] Carmela Barney, REBEL [address] [place] [address] documented as of this encounter Visit Diagnoses Diagnosis Chronic left-sided low back pain without sciatica documented in this encounter Additional Health Concerns Assessment Noted Time PHQ-9 Depression Total Score: 0 04/06/19 21 7:00 AM COSMETICS PRESSER documented as of this encounter Care Teams Automobile Parker Relationship Specialty Start Date End Date Chantale Dewitt MD [address] [place] [address] PCP - General Family Medicine 04/03/16 04/14/23 Carmela Barney PAC [address] [place] [address] PCP - General Physician Wafer Fab Technician 04/15/23 documented as of this encounter
--- OUTSIDE RECORDS SUMMARY | 2024-05-10 01:00 | XMS_ITS | Encounter Summary ---
Author Organization [facility] Address [address] [facility] [place] [address] Phone Care Team Providers Care Heavy Equipment Sales Associate Name Role Phone Chantale Dewitt MD Primary Care Provider [phone] Carmela Barney Primary Care Provider + Reason for Visit * Reason Comments Medication Refill Encounter Details Date Type Department Care Team (Late st Contact Info) Description 09/19/2022 Refill [facility] - Family Medicine [facility] [address] [place] [address] Chantale Dewitt MD [address] [place] [address] Medication Refill Social History Tobacco Use Types [...] [facility] - [place] [address] [place] [address] Carmela Barney PAC [address] [place] [address] documented as of this encounter Visit Diagnoses Diagnosis Chronic left-sided low back pain without sciatica documented in this encounter Additional Health Concerns Assessment Noted Time PHQ-9 Depression Total Score: 0 04/06/19 21 7:00 AM BUTCHER ASSISTANT documented as of this encounter Care Teams Heavy Equipment Sales Associate Relationship Specialty Start Date End Date Chantale Dewitt MD [address] [place] [address] PCP - General Family Medicine 04/03/16 04/14/23 Carmela Barney PAC [address] [facility] [place] [address] PCP - General Physician Reproducer 04/15/23 documented as of this encounter
--- OUTSIDE RECORDS SUMMARY | 2024-05-10 01:00 | XMS_ITS | Clinical Summary ---
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 Gender Identity Not on file Sexual Orientation [...] Tdap) 06/08/2031 Medical Devices Implanted Type Area Medical Intern Device Identifier Shelf Expiration Date Model / Serial / Lot Cmpnt Truliant Ps Cement Fem Right Sz 4 - [id number] - [id number] Implanted:Qty: 1 on 09/14/2017 by Brandon Mistry MD at [facility] Right: Knee [employer] 07/15/202786-549-17-03 40 / [id number] / 200-07-32 Optetrak 3 Peg Advanced Patella Cemented, Thickness 8.2mm 32mm X 37mm Implanted:Qty: 1 on 09/14/2017 by Brandon Mistry MD at [facility] Right: Knee [employer] [id number] 05/07/2022 200-07-32 / [id number] / Insert Tibial 4 9mm Knee Truliant Strl - [id number] - [id number] Implanted:Qty: 1 on 09/14/2017 by Brandon Mistry MD at [facility] Right: Knee [employer] 07/07/202502-152-11-40 09 / [id number] / Tray Tibial Truliant 4f/4t Knee Strl Ltxfre - [id number] - [id number] Implanted:Qty: 1 on 09/14/2017 by Brandon Mistry MD at [facility] Right: Knee [employer] 05/19/202719-133-78-40 40 / [id number] / [employer] [id number] Smartset High Viscosity Cement 40gm Bone Gentamicin - [id number] Implanted:Qty: 1 on 09/14/2017 by Brandon Mistry MD at [facility] Right: Knee [employer] 12/20/2018 [id number] / / [id number] [employer] [id number] Smartset High Viscosity Cement 40gm Bone Gentamicin - [id number] Implanted:Qty: 1 on 09/14/2017 by Brandon Mistry MD at [facility] Right: Knee [employer] 11/20/2018 [id number] / / [id number] Insurance MEDICARE [facility] MEDICARE [facility] MEDICARE [facility] MEDICARE [facility] Advance Directives For more information, please contact: [phone] * Full Code (Latest Code Status on File) Date Activated Date Inactivated Comments 09/14/2017 6:23 PM 09/15/2017 7:23 PM Care Teams Medical I D Sales Relationship Specialty Start Date End Date Terrance Elena Jr., MD [address] [place] [address] PCP - General 09/14/17 Carmela Edwards, SERVICE OFFICER Data Administrator Physical Therapy 09/04/17
--- OUTSIDE RECORDS SUMMARY | 2024-05-10 01:00 | XMS_ITS | Encounter Summary ---
Author Organization [facility] Address [address] [place] [address] Phone Care Team Providers Care Cell Lead Name Role Phone Chantale Dewitt MD Primary Care Provider [phone] Carmela Barney Primary Care Provider + Reason for Visit * Reason Comments Medication Refill Encounter Details Date Type Department Care Team (Late Contact Info) Description [facility]/21[facility]20[facility] [address] [place], [place] [id number] Chantale Dewitt MD [address] [place] [address] Medication Refill Social History Tobacco Use Types [...] Upcoming Encounters Date Type Department Care Team ([facility] Contact Info) Description 08/24/2024 9:00 AM CDT Office Visit [facility] - Family [facility] [address] [place] [address] Carmela Barney PAC [address] [place] [address] documented as of this encounter Visit Diagnoses Not on filedocumented in this encounter Additional Health Concerns Assessment Noted Time PHQ-9 Depression Total Score: 0 04/06/19 21 7:00 AM CUSTODIAL OFFICER documented as of this encounter Care Teams Cell Lead Relationship Specialty Start Date End Date Chantale Dewitt MD [address] [place] [address] PCP - General Family Medicine 04/03/16 04/14/23 Carmela Barney PAC [address] [place] [address] PCP - General Physician Plastics Engineer 04/15/23 documented as of this encounter
--- OUTSIDE RECORDS SUMMARY | 2024-05-10 01:00 | XMS_ITS | Encounter Summary ---
Author Organization [facility] Address [address] [facility] [place] [address] Phone Care Team Providers Care Patient Placement Coordinator Name Role Phone Chantale Dewitt MD Primary Care Provider [phone] Carmela Barney Primary Care Provider + Reason for Visit * Reason Comments Medication Refill Encounter Details Date Type Department Care Team (Late st Contact Info) Description 02/08/2022 Refill [facility] - [facility] [address] [place] [address] Chantale Dewitt MD [address] [place] [address] Medication Refill Social History Tobacco Use Types [...] 30 day supply filled. Last OV 10/07/2021 LE INSPECTOR documented in this encounter Plan of Treatment Upcoming Encounters Date Type Department Care Team (Late st Contact Info) Description 08/24/2024 9:00 AM CDT Office Visit [facility] - Family [facility] [address] [place] [address] Carmela Barney PAC [address] [place] [address] documented as of this encounter Visit Diagnoses Diagnosis Chronic left-sided low back pain without sciatica documented in this encounter Additional Health Concerns Assessment Noted Time PHQ-9 Depression Total Score: 0 04/06/19 7:00 AM BUCKLE INSPECTOR documented as of this encounter Care Teams Patient Placement Coordinator Relationship Specialty Start Date End Date Chantale Dewitt MD [address] [place] [address] PCP - General Family Medicine 04/03/16 04/14/23 Carmela Barney PAC [address] [place] [address] PCP - General Physician Vending Stand Supervisor 04/15/23 documented as of this encounter
[2024-05-10] MEDS: LACTATED RINGERS 1,000 ML 30 ML IV CONT ×2 (06:25→09:32)
--- NOTE | 2024-05-10 06:39 | WPDANESEPPF ---
Anes - Initial Pre Proc Eval Procedure: Operation Date: 05/10/24 07:30 Proposed Procedures p Left L4-L5 Hemilaminectomy - Shailesh Le MD Date/Time: 05/10/24 06:39 Surgeon: Shailesh Le MD Pre Op Diagnosis: L4-5 Stenosis Patient Data Age: 88 Gender: F Height: 1.75 m Weight: 104.5 kg Last Vital Signs Temp 36.5 C 05/10/24 06:06 Pulse 94 05/10/24 06:06 Resp 18 05/10/24 06:06 BP 160/72 H 05/10/24 06:06 Pulse Ox 97 05/10/24 06:06 O2 Del Method Room Air 05/10/24 06:06 Allergies Allergy/AdvReac Type Severity Reaction Status Date / Time milk Allergy Intermediate Diarrhea Verified 05/10/24 06:10 methylprednisolone (From AdvReac Intermediate Nausea Verified 05/10/24 06:10 Medrol) Sulfa (Sulfonamide AdvReac Intermediate Nausea Verified 05/10/24 06:10 Antibiotics) Home Medications ?Medication ?Instructions ?Recorded ?Confirmed ?Type acetaminophen 500 mg tablet 500 mg PO Q6H PRN Pain 01/26/24 05/10/24 History (Tylenol Extra Strength) cholecalciferol (vitamin D3) 25 25 mcg PO DAILY 01/26/24 05/10/24 History mcg (1,000 unit) capsule ezetimibe 10 mg tablet (Zetia) 10 mg PO DAILY 01/26/24 05/10/24 History hydrochlorothiazide 25 mg tablet 25 mg PO DAILY 01/26/24 05/10/24 History multivitamin-ferrous 1 tablet PO DAILY 01/26/24 05/10/24 History fumarate-folic acid 18 mg-400 mcg tablet (Centrum Complete) tramadol 50 mg tablet 50 mg PO Q6H PRN Pain 01/26/24 05/10/24 History celecoxib 200 mg capsule 200 mg PO Q24H 05/10/24 05/10/24 History irbesartan 150 mg tablet 150 mg PO DAILY 05/10/24 05/10/24 History Patient hx anesthesia problems: none Family hx anesthesia problems: none Results Review: All pre-operative results and documents have been reviewed as part of the pre-operative evaluation. [facility] Past Medical History Medical History (Updated 05/10/24 @ 06:40 by Dusty Bruce DO) Hyperlipidemia Osteoporosis IBS (irritable bowel syndrome) Hypertension Arthritis Surgical History Surgical History History of hysterectomy Family History Family History Mother Hypertension Heart disease Social History Social History Smoking status: Never smoker Alcohol intake: never Substance use: never Substance use type: does not use Living arrangements: alone Spiritual care concerns: No Anes - Eval Final PreProcedure Day of Procedure 05/10/24 06:39 Patient weight: obese Heart: regular rate and rhythm Lungs: clear to auscultation Airway: Mallampati scale class III Neurological: alert and oriented Last oral intake: >/= 8 hours ASA classification: III Emergent: no Anesthetic plan: proceed Anesthesia type and monitoring: general ETT and standard monitoring Results Review: All pre-operative results and documents have been reviewed as part of the pre-operative evaluation. Informed Consent: The patient's anesthetic plan and its attendant risks and benefits were discussed with the patient/family/POA. Questions were solicited and answers provided to the satisfaction of the patient/family/POA.
--- NOTE | 2024-05-10 07:56 | PM.IMHP ---
H&P: HPI History of Present Illness Date/Time: 05/10/24 07:56 Chief Complaint: Back and leg pain Narrative: Ms. Izaguirre is an 88-year-old female with a progressive history of problems related to her back and lower extremity. She has pain in her hips all the way down to her feet and in her back. The discomfort seems to go down the back of the legs mostly. There is sometimes a tingling sensation in her legs. This is mostly in her feet where there is also numbness. All of this seems claudicatory and is better when she is sitting. All these issues have been going on for more than a year progressively. She has undergone an MRI evaluation but has not participated in physical therapy or pain management. The pain is very limiting for her and certainly distracting on a daily basis. She has not report new bowel or bladder problems or specific muscle group weakness or dermatomal numbness. Review of Systems Review of Systems: Patient denies shortness of breath, cough, fever, chills, nausea, vomiting, weight loss, weight gain, chest pain, dysuria. She has back and leg pain and claudication as above. Review of systems otherwise negative on 12 systems except as noted elsewhere. [facility] Past Medical History Medical History (Updated 05/10/24 @ 06:40 by Dusty Bruce DO) Hyperlipidemia Osteoporosis IBS (irritable bowel syndrome) Hypertension Arthritis Surgical History Surgical History History of hysterectomy Family History Family History Mother Hypertension Heart disease Social History Social History Smoking status: Never smoker Alcohol intake: never Substance use: never Substance use type: does not use Living arrangements: alone Spiritual care concerns: No Meds Home Medications and Allergies Home Medications ?Medication ?Instructions ?Recorded ?Confirmed ?Type acetaminophen 500 mg tablet 500 mg PO Q6H PRN Pain 01/26/24 05/10/24 History (Tylenol Extra Strength) cholecalciferol (vitamin D3) 25 25 mcg PO DAILY 01/26/24 05/10/24 History mcg (1,000 unit) capsule ezetimibe 10 mg tablet (Zetia) 10 mg PO DAILY 01/26/24 05/10/24 History hydrochlorothiazide 25 mg tablet 25 mg PO DAILY 01/26/24 05/10/24 History multivitamin-ferrous 1 tablet PO DAILY 01/26/24 05/10/24 History fumarate-folic acid 18 mg-400 mcg tablet (Centrum Complete) tramadol 50 mg tablet 50 mg PO Q6H PRN Pain 01/26/24 05/10/24 History celecoxib 200 mg capsule 200 mg PO Q24H 05/10/24 05/10/24 History irbesartan 150 mg tablet 150 mg PO DAILY 05/10/24 05/10/24 History Allergies Allergy/AdvReac Type Severity Reaction Status Date / Time milk Allergy Intermediate Diarrhea Verified 05/10/24 06:10 methylprednisolone (From AdvReac Intermediate Nausea Verified 05/10/24 06:10 Medrol) Sulfa (Sulfonamide AdvReac Intermediate Nausea Verified 05/10/24 06:10 Antibiotics) Vital Signs Vital Signs - 24 hr 05/10/24 06:06 Temperature 97.7 F Pulse Rate 94 Respiratory Rate 18 Blood Pressure 160/72 H Pulse Oximetry 97 Oxygen Delivery Room Air Exam Narrative: General: cooperative, no acute distress, well developed, alert and awake Orientation/Consciousness: oriented to person, oriented to place and oriented to time Constitutional Limitations: no limitations Other: The patient is a normally developed, normal appearing female sitting on the examination table in no acute distress. He is awake, alert, and oriented x3 with good fund of knowledge, recall of events, and fluent speech. [facility] Head: normocephalic and atraumatic Ears: external ears normal Face/Nose/Sinus: Normal external nose present Eyes Eyelids: eyelids normal Pupils: Yes Pupils normal by confrontation EOM: EOMs intact bilaterally Neck General: Yes no meningeal signs, Yes supple and Yes no JVD Resp Effort/Inspection: normal respiratory effort and able to speak in complete sentences Cardio Rate: Yes regular rate GI Inspection: No abdominal distension Musc Other: Examination of the back reveals no tenderness. Range of motion of the back is Slightly limited without pain in forward flexion and lateral rotation to both sides. there is some pain in extension. Straight leg raise is negative bilaterally. Kev?s test is negative bilaterally. Skin General: normal color Neuro General: Yes oriented to person, Yes oriented to place, Yes oriented to time, Yes normal cognition and Yes no meningeal signs Cranial Nerves: Yes CN's II-XII intact bilaterally Other: Motor: Strength is normal, 5/5, throughout all muscle groups of the bilateral upper and lower extremities to direct confrontation. Sensory: Sensation is intact to light touch throughout the upper and lower extremities bilaterally. Reflexes: Deep tendon reflexes are difficult to elicit at the knees or ankles bilaterally. There is no clonus. Gait: Gait, station, and transfers are independent and steady for short periods of time and over short distances. Psych Appearance: grossly normal Mental status: Yes mental status grossly normal Mood: congruent mood Affect: Yes normal affect Speech/Movement: Normal speech and movement present Attitude: Yes cooperative Thought Content: Normal thought content present Review of studies: MRI of the lumbar spine was personally reviewed by me. This demonstrates a grade 1 spondylolisthesis at L4-5 and severe central canal stenosis at that level especially in the lateral recess. There is spondylosis throughout and some coronal deformity. There is fwam-ja-fximprjc stenosis elsewhere. Assessment and Plan Assessment and plan (1) Spondylolisthesis at L4-L5 level: Code(s): M43.16 - Spondylolisthesis, lumbar region Status: Acute (2) Lumbar stenosis with neurogenic claudication: Code(s): M48.062 - Spinal stenosis, lumbar region with neurogenic claudication Status: Acute Plan Ms. Izaguirre is an 88-year-old female with neurogenic claudication secondary to spinal stenosis but with spondylolisthesis at the stenotic level, that is, L4-5. I do not believe that she could undergo a fusion operation safely and benefit from it. Therefore I recommend only hemilaminectomy at L4-5 from the left side to minimize damage to structures that stabilize her spine and hopefully be able to deal with the stenosis enough that she can be more comfortable and more mobile. Her chances of success are in perfect but I believe that this is the safest and best path forward. I therefore described to her that operation, its risks, potential benefits, the operative and postoperative course in detail and answered all her questions personally. We discussed risks including but not limited to permanent neurologic deficit secondary to nerve root injury, need for reoperation secondary to infection, bleeding, CSF leak, adjacent level disease, recurrent or residual pathology or instability, failure of the procedure to relieve her pain or symptoms, persistent pain, medical complications related to anesthesia or surgery, etc.. She indicates understanding and elects to proceed with the operation.
[2024-05-10] MEDS: ceFAZolin 2 GM/D5W 50 ML 2 GM/50 ML BAG IVPB (07:58)
--- NOTE | 2024-05-10 07:59 | WPDHPUPDATE1 ---
History and Physical Update Update Date/Time: 05/10/24 07:59 History and Physical has been reviewed, including an updated exam of the patient. There are NO changes in the patient's condition. Risks, benefits, and alternatives have been discussed and questions answered. Patient agrees to proceed with procedure.
[2024-05-10] MEDS: LIDO 1%/EPINEPHRINE 1:100,000 20 ML VIAL 10 ML INFILTRATE (08:43)
--- NOTE | 2024-05-10 09:48 | P.OP_ITS ---
Procedure Note - Detailed Date of Procedure 05/10/24 Pre-op Diagnosis L4-5 Stenosis Post-op Diagnosis Same Procedure Performed Left L4-5 hemilaminectomy Surgeon Shailesh Le MD Anesthesia General Description of Procedure The patient was brought to the operating room in the supine position, was sedated, intubated placed under general anesthesia in routine fashion. She was then turned into the prone position on a Jean-Pierre frame. The of operation on her back was examined, marked for incision, prepped and draped in routine sterile fashion. Incision was marked over the L4-L5 spinous processes in the midline. This area was injected with 0.5% lidocaine with [id number] epinephrine. Intravenous antibiotics given prior to incision. Incision was made with a 10 blade scalpel down to the lumbodorsal fascia. A subperiosteal dissection muscle soft tissue away from spinous process lamina at L4-5 on the left was performed with a subperiosteal elevator and Bovie cautery. A verifying x-rays obtained to verify the level of operation. At L4-5 on the left a Midas Deng drill was used to perform a hemilaminectomy and medial facetectomy. Under microscopy the yellow ligament was lifted removed piecemeal using Kerrison punches. This was done in the midline. The spinous process was undercut. Curved curette was used to define a plane with the dura and lift overgrown ligament in the lateral recess. Kerrison punches were used to remove overgrown bone and ligament in the lateral recess 1st contralaterally and then hips laterally. The tissue was densely adherent to the dura. There was some thinning of the dura inferiorly. After decompression and confirmation of decompression by passing a dental instrument in the lateral epidural space and above below the nerve root, DuraSeal was placed over this area of thinning. The wound was copiously irrigated with bacitracin irrigation all bleeding stopp ed with bipolar Bovie cautery and Gelfoam thrombin powder. The wound was then closed in layered watertight fashion with 2-0 Vicryl interrupted sutures in the lumbodorsal fascia and Leonard's layer. 3-0 Vicryl buried interrupted sutures were placed in the dermis and skin was closed with a running 4-0 Monocryl subcuticular stitch and dressed with Dermabond. The patient was allowed to wake up in the operating room and was taken to the recovery room in stable condition. There were no immediate complications of this operation. All counts reported correct at the end of the case. Blood loss was 25 cc. The patient was neurologically at her baseline postoperatively. CPT codes: 81921, 14109, 73044
[2024-05-10] MEDS: oxyCODONE HCL (*CRX) 5 MG TAB IR PO (11:21)
== END 2024-05-10 12:05 | disposition home or self-care (01) ==
PROVIDERS: PCP Physician Assistant; Visit Provider Neurological Surgery
PROC: (CPT 63030; principal; 2024-05-10 07:30)
DX: M48.062 Spinal stenosis, lumbar region with neurogenic claudication (principal); M43.16 Spondylolisthesis, lumbar region
CPT/HCPCS: 63047; 99199; A9270; J0330; J0690; J1100; J2003; J2004; J2405; J2704; J3010; J7120